=== PATIENT | male | born 1980 | race Caucasian/White ===

== ENCOUNTER → 2016-12-30 | Outpatient (CLI) | payer OTHER ==
[~2016-12-30] MED LIST: AMLO10TA PO; ASPI-587 PO; Atorvastatin Calcium PO; HYDR25TA4 PO; METO-272 PO; SERT25TA5 PO; VALS160T2 PO
--- OUTSIDE RECORDS SUMMARY | 2016-12-30 14:23 | XMS REPORT ---
Author Author JENA SMITH Organization [employer] Address Unknown Phone Unavailable Care Team Providers Care Insulator Technician Name Role Phone JENA SMITH CP Unavailable Allergies No Known Allergies Problems Problem Type Condition Code Onset Dates Condition Status Problem Pure hypercholesterolemia E78.0 Active Problem Anxiety F41.9 Active Problem Essential hypertension with goal blood pressure less than 130\/80 I10 Active Problem Obesity (BMI 30-39.9) E66.9 Active Problem Fatigue, unspecified type R53.83 Active Problem Hyperlipidemia E78.5 Active Problem Syncope and collapse R55 Active Problem Sexual dysfunction R37 Active Problem Lack of motivation Z91.89 Active Problem Syncope, unspecified syncope type R55 Active Assessment Pure hypercholesterolemia E78.0 Active Assessment Hyperlipidemia E78.5 Active Problem Lumbago 724.2 Active Problem Solitary pulmonary nodule 793.11 Active Medications Medication Code System Code Instructions Start Date End Date Status Dosage Atorvastatin Calcium [facility] [id number] 20 mg Orally Once a day TAKE ONE TABLET DAILY AT BEDTIME. AVOID GRAPEFRUIT JUICE Results No Known Results Summary Purpose [employer] Submission
--- NOTE | 2016-12-30 17:32 | Diagnostic Imaging Report ---
INDICATION: Painful right testicle. FINDINGS: Right testicle measures 3.7 x 2.2 x 3.6 cm. The left testicle measures 3.6 x 2 x 3.4 cm. The testicles are homogeneous with no masses. There is normal color flow to both testicles. There are rather large varicoceles present bilaterally. This does correlate with the lump that the patient feels. The epididymides appear normal. There is small hydrocele noted on the right. IMPRESSION: 1. Normal-appearing testicles 2. Large bilateral varicoceles. 3. Small hydrocele on the right. Dictated by: Dictated on workstation # [id number]
== END ==
LOC: RAD 14:19
PROVIDERS: ATTEND Nurse Practitioner Family
DX: I86.1 Scrotal varices (principal); N43.3 Hydrocele, unspecified
CPT/HCPCS: 76870

== ENCOUNTER 2018-06-13 19:06 | Emergency (ER) | payer SELFPAY ==
[~2018-06-13] VITALS: Ht 180.3 cm; Wt 117.9 kg
--- OUTSIDE RECORDS SUMMARY | 2018-06-13 19:12 | XMS REPORT ---
Author Author LUIS JENA [facility] Address [address] [place] [address] Care Team Providers Care Early Learning Teacher Name Role Phone JENA SMITH Unavailable PROBLEMS Type Condition ICD9-CM Code BPI77-SS Code Onset Dates Condition Status SNOMED Code Problem Anxiety F41.9 Active 34733627 Problem Syncope, unspecified syncope type R55 Active 905483774 Problem Syncope and collapse R55 Active 964115410 Problem Resistant hypertension I10 Active 99448685 Problem Abdominal cramping R10.9 Active 664657494 Problem Lack of motivation Z91.89 Active 68135616 Problem Fatigue, unspecified type R53.83 Active 89457188 Problem Hyperlipidemia E78.5 Active 58996132 Problem Obesity (BMI 30-39.9) E66.9 Active 946336111 Problem Lumbago 724.2 Active 968413766 Problem Essential hypertension with goal blood pressure less than 130\/80 I10 Active 66144881 Problem Pure hypercholesterolemia E78.0 Active 624492220 Problem Solitary pulmonary nodule 793.11 Active 432287203 Problem Sexual dysfunction R37 Active 67748821 ALLERGIES No Information ENCOUNTERS Encounter Location Date Diagnosis [facility] [address] [id number][place] [id number] May, [facility] [address] [id number], [place] [id number] Jan, [facility] [address] [id number], [place] [id number] Jan, Essential hypertension with goal blood pressure less than 130\/80 I10 [facility] [address] [id number] [place] [id number] Dec, [facility] [address] [id number][place] [id number] Dec, Essential hypertension with goal blood pressure less than 130\/[address] [facility] [address] [id number] [place] [id number] Dec, [facility] [address] [id number] [place] [id number] Nov, Resistant hypertension I10 and Anxiety F41.[address] [facility] [address] [id number] [place] [address] Nov, [facility] [address] [id number] [place] [address] Oct, [facility] [address] [id number] [place] [address] Oct, Essential hypertension with goal blood pressure less than 130\/80 I[address] [facility] [address] [id number] [place] [address] Oct, Essential hypertension with goal blood pressure less than 130\/80 I10 ; Obesity (BMI 30-39.9) E66.9 ; Abdominal cramping R10.9 and Anxiety F41.[address] [facility] [address] [id number] [place] [id number] Jun, Essential hypertension with goal blood pressure less than 130\/80 I[address] [facility] [address] [id number] [place] [address] May, Essential hypertension with goal blood pressure less than 130\/80 I[address] [facility] [address] [id number] [place] [address] May, [facility] [address] [id number] [place] [id number] May, Essential hypertension with goal blood pressure less than 130\/80 I10 ; Pure hypercholesterolemia E78.0 and Acute allergic rhinitis, unspecified seasonality, unspecified trigger J30.[address] [facility] [address] [id number] [place] [id number] February, [facility] [address] [id number] [place] [address] February, Essential hypertension with goal blood pressure less than 130\/80 I[address] [facility] [address] [id number] [place] [id number] Dec, [facility] [address] [id number], [place] [id number] Nov, Pain in right testicle N50.811 and Essential hypertension with goal blood pressure less than 130\/80 I[address] [facility] [address] [id number] [place] [address] Jul, [facility] [address] [id number] [place] [id number] Jul, Essential hypertension with goal blood pressure less than 130\/80 I10 ; Fatigue, unspecified type R53.83 ; Obesity (BMI 30-39.9) E66.9 and Lack of motivation Z91.89 [facility] [address] [id number], [place] [address] Jul, [facility] [address] [id number], [place] [id number] Jul, Hyperlipidemia E78.5 and Pure hypercholesterolemia E78.0 [facility] [address] [id number], [place] [address] Jun, Hyperglycemia R73.9 ; Hyperlipidemia E78.5 and Pure hypercholesterolemia E78.0 [facility] [address] [id number] [place] [id number] Jun, [facility] [address] [id number] [place] [id number] Apr, Syncope, unspecified syncope type R55 ; Chest pain, unspecified type R07.9 and Essential hypertension I10 [facility] [address] [id number] [place] [id number] Mar, Essential hypertension with goal blood pressure less than 130\/80 I10 and Pure hypercholesterolemia E78.[address] [facility] [address] [id number], [place] [id number] February, Essential hypertension with goal blood pressure less than 130\/80 I10 ; Syncope and collapse R55 and Anxiety F41.9 [facility] [address] [id number][place] [address] February, [facility] [address] [id number], [place] [id number] Jan, Essential hypertension with goal blood pressure less than 130\/80 I10 ; Sexual dysfunction R37 and Anxiety F41.9 [facility] [address] [address] Dec, Hyperglycemia R73.9 and Hyperlipidemia E78.5 [facility] [address] [id number], [place] [id number] Dec, Essential hypertension with goal blood pressure less than 130\/80 I10 and Pure hypercholesterolemia E78.0 [facility] [address] [id number], [place] [id number] Dec, Essential hypertension with goal blood pressure less than 130\/80 I10 and Pure hypercholesterolemia E78.0 [facility] [address] [place] [address] February, Generalized anxiety disorder 300.02 ; Unspecified episodic mood disorder 296.90 ; No condition on [place] II V71.09 ; Hypertension 401.9 and Bulging discs 722.2 [facility] [address] [id number], [place] [id number] Jan, [facility] [address] [id number], [place] [id number] Jan, [facility] [address] [address] Jan, [facility] [address] [address] Jan, [facility] [id number] [place] [address] Dec, [facility] [place] [facility] [address] [id number] [place] [address] 24 Dec, 2014 [facility] [place] [facility] [address] [id number] [place] [address] Dec, [facility] [place] [facility] [address] [id number] [place] [address] Dec, [facility] [place] [facility] [address] [id number] [place] [address] Dec, [facility] [place] [facility] [address] [id number] [place] [address] Dec, [facility] [place] [facility] [address] [id number] [place] [address] Nov, [facility] [place] [facility] [address] [id number] [place] [address] Nov, [facility] [place] [facility] [address] [id number] [place] [address] Nov, [facility] [place] [facility] [address] [id number] [place] [address] Nov, [facility] [place] [facility] [address] [facility] [id number] [place] [address] Oct, [facility] [place] [facility] [address] [id number] [place] [address] Oct, [facility] [place] [facility] [address] [id number] [place] [address] Oct, [facility] [place] [facility] [address] [id number] [place] [address] Oct, [facility] [place] [facility] [address] [id number] [place] [address] Oct, [facility] [place] [facility] [address] [id number] [place] [address] Oct, [facility] [address] [facility] [id number] [place] [address] Oct, [facility] [address] [facility] [id number] [address] Jul, [facility] [address] [facility] [id number] [place] [address] May, IMMUNIZATIONS No Known Immunizations SOCIAL HISTORY Never Assessed REASON FOR VISIT Refill request PLAN OF CARE VITAL SIGNS MEDICATIONS Unknown Medications RESULTS No Results PROCEDURES No Known procedures INSTRUCTIONS MEDICATIONS ADMINISTERED No Known Medications MEDICAL (GENERAL) HISTORY Type Description Date Medical History Hypertension Medical History Hyperlipidemia Medical History chronic low back pain Medical History obesity Medical History bilateral varicocele's and right hydrocele Medical History CVD risk 6.5% 10 yr, no statin indicated at this time Hospitalization History High BP 2014 Hospitalization History Via [facility]. Evaluated and sent home. 02/2016
--- OUTSIDE RECORDS SUMMARY | 2018-06-13 19:12 | XMS REPORT ---
Author Author LUIS JENA [facility] Address [address] [place] [address] Care Team Providers Care Solar Energy Installation Manager Name Role Phone JENA SMITH Unavailable PROBLEMS Type Condition ICD9-CM Code DIT43-XH Code Onset Dates Condition Status SNOMED Code Problem Anxiety F41.9 Active 36519170 Problem Syncope, unspecified syncope type R55 Active 723710966 Problem Syncope and collapse R55 Active 109531309 Problem Resistant hypertension I10 Active 37599084 Problem Abdominal cramping R10.9 Active 215358972 Problem Lack of motivation Z91.89 Active 54656016 Problem Fatigue, unspecified type R53.83 Active 06677456 Problem Hyperlipidemia E78.5 Active 97798215 Problem Obesity (BMI 30-39.9) E66.9 Active 616992546 Problem Lumbago 724.2 Active 433913300 Problem Essential hypertension with goal blood pressure less than 130\/80 I10 Active 47746252 Problem Pure hypercholesterolemia E78.0 Active 174608909 Problem Solitary pulmonary nodule 793.11 Active 801515185 Problem Sexual dysfunction R37 Active 23333853 ALLERGIES No Information ENCOUNTERS Encounter Location Date [facility] [address] [id number] [id number] May, [facility] [address] [id number], [place] [address] Jan, [facility] [address] [id number], [place] [address] Jan, Essential hypertension with goal blood pressure less than 130\/80 I10 [facility] [address] [id number] [place] [id number] Dec, [facility] [address] [id number], [place] [address] Dec, Essential hypertension with goal blood pressure less than 130\/80 I[address] [facility] [address] [id number] [place] [address] Dec, [facility] [address] [id number] [place] [id number] Nov, Resistant hypertension I10 and Anxiety F41.[address] [facility] [address] [id number] [place] [address] Nov, [facility] [address] [id number] [place] [id number] Oct, [facility] [address] [id number] [place] 464[address] Oct, Essential hypertension with goal blood pressure less than 130\/80 I[address] [facility] [address] [id number] [place] [address] Oct, Essential hypertension with goal blood pressure less than 130\/80 I10 ; Obesity (BMI 30-39.9) E66.9 ; Abdominal cramping R10.9 and Anxiety F41.[address] [facility] [address] [id number] [place] [id number] Jun, Essential hypertension with goal blood pressure less than 130\/80 I[address] [facility] [address] [id number] [place] [address] May, Essential hypertension with goal blood pressure less than 130\/80 I[address] [facility] [address] [id number] [place] [id number] May, [facility] [address] [id number] [place] [id number] May, Essential hypertension with goal blood pressure less than 130\/80 I10 ; Pure hypercholesterolemia E78.0 and Acute allergic rhinitis, unspecified seasonality, unspecified trigger J30.[address] [facility] [address] [id number] [place] [id number] February, [facility] [address] [id number] [place] [address]39[address] February, Essential hypertension with goal blood pressure less than 130\/80 I[address] [facility] [address] [id number] [place] [address] Dec, [facility] [address] [id number], [place] [address] Nov, Pain in right testicle N50.811 and Essential hypertension with goal blood pressure less than 130\/80 I[address] [facility] [address] [id number] [place] [address] Jul, [facility] [address] [id number] [place] [address] Jul, Essential hypertension with goal blood pressure less than 130\/80 I10 ; Fatigue, unspecified type R53.83 ; Obesity (BMI 30-39.9) E66.9 and Lack of motivation Z91.89 [facility] [address] [id number], [place] [address] Jul, [facility] [address] [id number], [place] [address] Jul, Hyperlipidemia E78.5 and Pure hypercholesterolemia E78.0 [facility] [address] [id number], [place] [address] Jun, Hyperglycemia R73.9 ; Hyperlipidemia E78.5 and Pure hypercholesterolemia E78.0 [facility] [address] [id number] [place] [id number] Jun, [facility] [address] [id number] [place] [id number] Apr, Syncope, unspecified syncope type R55 ; Chest pain, unspecified type R07.9 and Essential hypertension I10 [facility] [address] [id number] [place] [id number] Mar, Essential hypertension with goal blood pressure less than 130\/80 I10 and Pure hypercholesterolemia E78.[address] [facility] [address] [id number], [place] [id number] February, Essential hypertension with goal blood pressure less than 130\/80 I10 ; Syncope and collapse R55 and Anxiety F41.9 [facility] [address] [id number], [place] [id number] February, [facility] [address] [id number], [place] [id number] Jan, Essential hypertension with goal blood pressure less than 130\/80 I10 ; Sexual dysfunction R37 and Anxiety F41.9 [facility] [address], [place] [address] Dec, Hyperglycemia R73.9 and Hyperlipidemia E78.5 [facility] [address] [id number], [place] [id number] Dec, Essential hypertension with goal blood pressure less than 130\/80 I10 and [facility]olemia E78.0 [facility] [address] [id number], [place] [address] Dec, Essential hypertension with goal blood pressure less than 130\/80 I10 and Pure hypercholesterolemia E78.0 [facility] [address] [place] [address] February, Generalized anxiety disorder 300.02 ; Unspecified episodic mood disorder 296.90 ; No condition on [place] II V71.09 ; Hypertension 401.9 and Bulging discs 722.2 [facility] [address] [id number], [place] [id number] Jan, [facility] [address] [id number], [place] [id number] Jan, [facility] [address], [place] [address] Jan, [facility] [address], [place] [address] Jan, [facility] [id number] [place] [address]- [address] Dec, [facility] [place] [facility] [address] [id number] [place] [address]- [address] 24 Dec, 2014 [facility] [place] [facility] [address] [id number] [place] [address]- [address] Dec, [facility] [place] [facility] [address] [id number] [place] [address]- 8170 Dec, [facility] [place] [facility] [address] [id number] [place] [address]- 6555 Dec, [facility] [place] [facility] [address] [id number] [place] [address]- 1134 Dec, [facility] [place] [facility] [address] [id number] [place] [address]- 98[address] Nov, [facility] [place] [facility] [address] [id number] [place] [address]- 7892 Nov, [facility] [place] [facility] [address] [id number] [place] [address]- [address]287 Nov, [facility] [place] [facility] [address] [id number] [place] [address]- [address]306 Nov, [facility] [place] [facility] [address] [facility] [id number] [place] [address]- [address] Oct, [facility] [place] [facility] [address] [id number] [place] [address]- 6484 Oct, [facility] [place] [facility] [address] [id number] [place] [address]- 4382 Oct, [facility] [place] [facility] [address] [id number] [place] [address]- 1616 Oct, [facility] [place] [facility] [address] [id number] [place] [address]- 1250 Oct, [facility] [place] [facility] [address] [id number] [place] [address]- 8488 Oct, [facility] [address] [facility] [id number] [place] [address]- [address] Oct, [facility] [address] [facility] [id number], [place] [address]- [address] Jul, [facility] [address] [facility] [id number] [place] [address]- [address] May, IMMUNIZATIONS No Known Immunizations SOCIAL HISTORY Never Assessed REASON FOR VISIT Blood pressure check PLAN OF CARE VITAL SIGNS MEDICATIONS Medication Instructions Dosage Frequency Start Date End Date Duration Status Benazepril HCl 40 mg Orally Once a day 1 tablet 24h Dec, 30 day (s) Active RESULTS No Results PROCEDURES No Known procedures INSTRUCTIONS MEDICATIONS ADMINISTERED No Known Medications MEDICAL (GENERAL) HISTORY Type Description Date Medical History Hypertension Medical History Hyperlipidemia Medical History chronic low back pain Medical History obesity Medical History bilateral varicocele's and right hydrocele Medical History CVD risk 6.5% 10 yr, no statin indicated at this time Hospitalization History High BP 2014 Hospitalization History [facility]. Evaluated and sent home. 02/2016
--- OUTSIDE RECORDS SUMMARY | 2018-06-13 19:12 | XMS REPORT ---
Author Author [facility]ED CAMP [facility] Address Unknown Phone Unavailable Care Team Providers Care Refrigerating Engineer Head Name Role Phone ALFRED CAMP Unavailable Unavailable PROBLEMS Type Condition ICD9-CM Code EPF54-WC Code Onset Dates Condition Status SNOMED Code Problem Anxiety F41.9 Active 67802846 Problem Syncope, unspecified syncope type R55 Active 728183771 Problem Syncope and collapse R55 Active 701405972 Problem Resistant hypertension I10 Active 54906338 Problem Abdominal cramping R10.9 Active 183238508 Problem Lack of motivation Z91.89 Active 19890411 Problem Fatigue, unspecified type R53.83 Active 80066366 Problem Hyperlipidemia E78.5 Active 54764167 Problem Obesity (BMI 30-39.9) E66.9 Active 956130021 Problem Lumbago 724.2 Active 590684386 Problem Essential hypertension with goal blood pressure less than 130\/80 I10 Active 91589608 Problem Pure hypercholesterolemia E78.0 Active 173586527 Problem Solitary pulmonary nodule 793.11 Active 622665664 Problem Sexual dysfunction R37 Active 49734468 ALLERGIES No Information ENCOUNTERS Encounter Location Date Diagnosis [facility] [address] [id number] [id number] May, [facility] [address] [id number], [place] [id number] Jan, [facility] [address] [id number] [place] [id number] Jan, Essential hypertension with goal blood pressure less than 130\/80 I10 [facility] [address] [id number] [place] [id number] Dec, [facility] [address] [id number], [place] [id number] Dec, Essential hypertension with goal blood pressure less than 130\/80 I[address] [email or web address] [address] [id number] [place] [id number] Dec, [facility] [address] [id number] [place] [address] Nov, Resistant hypertension I10 and Anxiety F41.[address] [facility] [address] [id number] [place] [id number] Nov, [facility] [address] [id number] [place] [id number] Oct, [facility] [address] [id number] [place] [address] Oct, Essential hypertension with goal blood pressure less than 130\/[address] [facility] [address] [id number] [place] [id number] Oct, Essential hypertension with goal blood pressure less than 130\/80 I10 ; Obesity (BMI 30-39.9) E66.9 ; Abdominal cramping R10.9 and Anxiety F41.[address] [address] [id number][place] [address] Jun, Essential hypertension with goal blood pressure less than 130\/[address] [facility] [address] [id number][place] [id number] May, Essential hypertension with goal blood pressure less than 130\/80 I[address] [facility] [address] [id number] [place] [address] May, [facility] [address] [id number] [place] [address] May, Essential hypertension with goal blood pressure less than 130\/80 I10 ; Pure hypercholesterolemia E78.0 and Acute allergic rhinitis, unspecified seasonality, unspecified trigger J30.[address] [facility] [address] [id number] [place] [id number] February, [facility] [address] [id number], [place] [address]35 February, Essential hypertension with goal blood pressure less than 130\/80 I10 [facility] [address] [id number] [place] [id number] Dec, [facility] [address] [id number], [place] [address] Nov, Pain in right testicle N50.811 and Essential hypertension with goal blood pressure less than 130\/80 I10 [facility] [address] [id number], [place] [address] Jul, [facility] [address] [id number], [place] 2010[address]335 Jul, Essential hypertension with goal blood pressure less than 130\/80 I10 ; Fatigue, unspecified type R53.83 ; Obesity (BMI 30-39.9) E66.9 and Lack of motivation Z91.89 [facility] [address] [id number], [place] [address] Jul, [facility] [address] [id number], [place] [id number] Jul, Hyperlipidemia E78.5 and Pure hypercholesterolemia E78.0 [facility] [address] [id number], [place] [id number] Jun, Hyperglycemia R73.9 ; Hyperlipidemia E78.5 and Pure hypercholesterolemia E78.0 [facility] [address] [id number], [place] [id number] Jun, [facility] [address] [id number] [place] [id number] Apr, Syncope, unspecified syncope type R55 ; Chest pain, unspecified type R07.9 and Essential hypertension I10 [facility] [address] [id number], [place] [id number] Mar, Essential hypertension with goal blood pressure less than 130\/80 I10 and Pure hypercholesterolemia E78.0 [facility] [address] [id number], [place] [address] February, Essential hypertension with goal blood pressure less than 130\/80 I10 ; Syncope and collapse R55 and Anxiety F41.9 [facility] [address] [id number], [place] [id number] February, [facility] [address] [id number], [place] [address] Jan, Essential hypertension with goal blood pressure less than 130\/80 I10 ; Sexual dysfunction R37 and Anxiety F41.9 [facility] [address], [place] [address] Dec, Hyperglycemia R73.9 and Hyperlipidemia E78.5 [facility] [address] [id number], [place] [id number] Dec, Essential hypertension with goal blood pressure less than 130\/80 I10 and Pure hypercholesterolemia E78.0 [facility] [address] [id number], [place] [address] Dec, Essential hypertension with goal blood pressure less than 130\/80 I10 and Pure hypercholesterolemia E78.0 [facility] [address], [place] [address] February, Generalized anxiety disorder 300.02 ; Unspecified episodic mood disorder 296.90 ; No condition on [place] II V71.09 ; Hypertension 401.9 and Bulging discs 722.2 [facility] [address] [id number], [place] [id number] Jan, [facility] [address] [id number], [place] [id number] Jan, [facility] [address], [place] [address] Jan, [facility] [address]65[address], [place] [address] Jan, [facility] [address] [id number], [place] [address] Dec, [facility] [address] [id number] [place] [address] Dec, [facility] [place] [facility] [address] [id number] [place] [address] Dec, [facility] [place] [facility] [address] [id number] [place] [address] Dec, [facility] [place] [facility] [address] [id number] [place] [address] Dec, [facility] [place] [facility] [address] [id number] [place] [address] Dec, [facility] [place] [facility] [address] [id number] [place] [address] Nov, [facility] [place] [facility] [address] [id number] [place] [address] Nov, [facility] [place] [facility] [address] [id number] [place] [address] Nov, [facility] [place] [facility] [address] [id number] [place] [address] Nov, [facility] [place] [facility] [address] [id number] [place] [address] Oct, [facility] [place] [facility] [address] [id number] [place] [address] Oct, [facility] [place] [facility] [address] [id number] [place] [address] Oct, [facility] [place] [facility] [address] [id number] [place] [address] Oct, [facility] [place] [facility] [address] [id number] [place] [address] Oct, [facility] [place] [facility] [address] [id number] [place] [address] Oct, [facility] [place] [facility] [address] [id number] [place] [address] Oct, [facility] [address] [facility] [id number] [place] [address] Jul, [facility] [address] [facility] [id number] [place] [address] May, IMMUNIZATIONS No Known Immunizations SOCIAL HISTORY Never Assessed REASON FOR VISIT [facility] [place] Contact PLAN OF CARE Activity Details Follow Up as needed. Reason:past hx. of mood disturbance. VITAL SIGNS MEDICATIONS Unknown Medications RESULTS No [...] History High BP 2014 Hospitalization History Via [facility] ER. Evaluated and sent home. 02/2016
--- OUTSIDE RECORDS SUMMARY | 2018-06-13 19:12 | XMS REPORT ---
Author Author LUIS JENA [facility] Address [address] [place] [address] Care Team Providers Care Electrologist Name Role Phone JENA SMITH Unavailable PROBLEMS Type Condition ICD9-CM Code QMR23-WQ Code Onset Dates Condition Status SNOMED Code Problem Anxiety F41.9 Active 66648532 Problem Syncope, unspecified syncope type R55 Active 283740372 Problem Syncope and collapse R55 Active 623432977 Problem Resistant hypertension I10 Active 79540512 Problem Abdominal cramping R10.9 Active 869365144 Problem Lack of motivation Z91.89 Active 89952706 Problem Fatigue, unspecified type R53.83 Active 50783743 Problem Hyperlipidemia E78.5 Active 92879061 Problem Obesity (BMI 30-39.9) E66.9 Active 196895490 Problem Lumbago 724.2 Active 557150064 Problem Essential hypertension with goal blood pressure less than 130\/80 I10 Active 91284118 Problem Pure hypercholesterolemia E78.0 Active 343456887 Problem Solitary pulmonary nodule 793.11 Active 280450313 Problem Sexual dysfunction R37 Active 24493574 ALLERGIES No Information ENCOUNTERS Encounter Location Date Diagnosis [facility] [address] [id number] [id number] May, [facility] [address] [id number], [place] [address] Jan, [facility] [address] [id number], [place] [address]86190752 Jan, Essential hypertension with goal blood pressure less than 130\/80 I10 [facility] [address] [id number] [place] [address] Dec, [facility] [address] [id number], [place] [address]23 Dec, Essential hypertension with goal blood pressure less than 130\/80 I[address] [facility] [address] [id number] [place] [address] Dec, [facility] [address] [id number] [place] [address] Nov, Resistant hypertension I10 and Anxiety F41.[address] [facility] [address] [id number] [place] [address] Nov, [facility] [address] [id number] [place] [address] Oct, [facility] [address] [id number] [place] 1985[address]46 Oct, Essential hypertension with goal blood pressure less than 130\/80 [address] [facility] [address] [id number] [place] [address] Oct, Essential hypertension with goal blood pressure less than 130\/80 I10 ; Obesity (BMI 30-39.9) E66.9 ; Abdominal cramping R10.9 and Anxiety F41.[address] [facility] [address] [id number] [place] [address] Jun, Essential hypertension with goal blood pressure less than 130\/80 [address] [facility] [address] [id number] [place] [address] May, Essential hypertension with goal blood pressure less than 130\/80 I[address] [facility] [address] [id number] [place] [address] May, [facility] [address] [id number] [place] [address] May, Essential hypertension with goal blood pressure less than 130\/80 I10 ; Pure hypercholesterolemia E78.0 and Acute allergic rhinitis, unspecified seasonality, unspecified trigger J30.[address] [facility] [address] [id number] [place] [address] February, [facility] [address] [id number] [place] [address] February, Essential hypertension with goal blood pressure less than 130\/80 I[address] [facility] [address] [id number] [place] [address]69364[address] Dec, [facility] [address] [id number], [place] [address] Nov, Pain in right testicle N50.811 and Essential hypertension with goal blood pressure less than 130\/80 I[address] [facility] [address] [id number] [place] [address] Jul, [facility] [address] [id number] [place] [address] Jul, Essential hypertension with goal blood pressure less than 130\/80 I10 ; Fatigue, unspecified type R53.83 ; Obesity (BMI 30-39.9) E66.9 and Lack of motivation Z91.89 [facility] [address] [id number], [place] 435007[address] Jul, [facility] [address] [id number], [place] 619548199 Jul, Hyperlipidemia E78.5 and Pure hypercholesterolemia E78.0 [facility] [address] [id number], [place] 801[address] Jun, Hyperglycemia R73.9 ; Hyperlipidemia E78.5 and Pure hypercholesterolemia E78.0 [facility] [address] [id number] [place] [address] Jun, [facility] [address] [id number] [place] [address] Apr, Syncope, unspecified syncope type R55 ; Chest pain, unspecified type R07.9 and Essential hypertension I10 [facility] [address] [id number] [place] [id number] Mar, Essential hypertension with goal blood pressure less than 130\/80 I10 and Pure hypercholesterolemia E78.[address] [facility] [address] [id number], [place] 4478229[address] February, Essential hypertension with goal blood pressure less than 130\/80 I10 ; Syncope and collapse R55 and Anxiety F41.9 [facility] [address] [id number], [place] 148515852 February, [facility] [address] [id number], [place] [address]9546[address] Jan, Essential hypertension with goal blood pressure less than 130\/80 I10 ; Sexual dysfunction R37 and Anxiety F41.9 [facility] [place] [address], [place] [address] Dec, Hyperglycemia R73.9 and Hyperlipidemia E78.5 [facility] [address] [id number], [place] 360665845 Dec, Essential hypertension with goal blood pressure less than 130\/80 I10 and Pure hypercholesterolemia E78.0 [facility] [address] [id number], [place] 182496555 Dec, Essential hypertension with goal blood pressure less than 130\/80 I10 and Pure hypercholesterolemia E78.0 [facility] [place] [address] [place] [address] February, Generalized anxiety disorder 300.02 ; Unspecified episodic mood disorder 296.90 ; No condition on [place] II V71.09 ; Hypertension 401.9 and Bulging discs 722.2 [facility] [address] [id number], [place] [id number] Jan, [facility] [address] [id number], [place] 342173870 Jan, [facility] [place] [address]65100[place], [place] [address] Jan, [facility] [place] [address]65100[place], [place] [address] Jan, [facility] [place] [id number] [place] [address] Dec, [facility] [place] [facility] [address] [id number] [place] [address]- [address] 24 Dec, 2014 [facility] [place] [facility] [address] [id number] [place] [address]- [address]17 Dec, [facility] [place] [facility] [address] [id number] [place] [address]- [address]21 Dec, [facility] [place] [facility] [address] [id number] [place] [address]- [address]99 Dec, [facility] [place] [facility] [address] [id number] [place] [address]- [address]267 Dec, [facility] [place] [facility] [address] [id number] [place] [address]- [address] Nov, [facility] [place] [facility] [address] [id number] [place] [address]- 7491 Nov, [facility] [place] [facility] [address] [id number] [place] [address]- [address] Nov, [facility] [place] [facility] [address] [id number] [place] [address]- [address]249 Nov, [facility] [place] [facility] [address] [facility] [id number] [place] [address]- 2706 Oct, [facility] [place] [facility] [address] [id number] [place] [address]- [address] Oct, [facility] [place] [facility] [address] [id number] [place] [address]- 9718 Oct, [facility] [place] [facility] [address] [id number] [place] [address]- 4994 Oct, [facility] [place] [facility] [address] [id number] [place] [address]- 6018 Oct, [facility] [place] [facility] [address] [id number] [place] [address]- 1190 Oct, [facility] [place] [address] [facility] [id number] [place] [address] Oct, [facility] [place] [address] [facility] [id number], [place] [address]- [address] Jul, [facility] [place] [address] [facility] [id number] [place] May, IMMUNIZATIONS No Known Immunizations SOCIAL HISTORY Never Assessed REASON FOR VISIT refill request PLAN OF CARE VITAL SIGNS MEDICATIONS [...] History High BP 2014 Hospitalization History Via [facility] ER. Evaluated and sent home. 02/2016
--- OUTSIDE RECORDS SUMMARY | 2018-06-13 19:12 | XMS REPORT ---
Author Author LUIS JENA [facility] Address [address] [place] [address] Care Team Providers Care Rig Manager Name Role Phone JENA SMITH Unavailable PROBLEMS Type Condition ICD9-CM Code [id number] Code Onset Dates Condition Status SNOMED Code Problem Anxiety F41.9 Active 93829860 Problem Syncope, unspecified syncope type R55 Active 909351532 Problem Syncope and collapse R55 Active 410354208 Problem Resistant hypertension I10 Active 12265776 Problem Abdominal cramping R10.9 Active 443709478 Problem Lack of motivation Z91.89 Active 53096359 Problem Fatigue, unspecified type R53.83 Active 84016096 Problem Hyperlipidemia E78.5 Active 22383752 Problem Obesity (BMI 30-39.9) E66.9 Active 768540738 Problem Lumbago 724.2 Active 266274447 Problem Essential hypertension with goal blood pressure less than 130\/80 I10 Active 55276558 Problem Pure hypercholesterolemia E78.0 Active 298659491 Problem Solitary pulmonary nodule 793.11 Active 217045840 Problem Sexual dysfunction R37 Active 16869417 ALLERGIES Substance Reaction Event Type Date Status Lisinopril hives Drug Allergy Jan, Active Amlodipine Besylate foot cramps Drug Allergy Jan, Active ENCOUNTERS Encounter Location Date [facility] [address] [address] [id number] [place] [id number] May, [facility] [address] [address] [id number] [place] [id number] Jan, [facility] [address] [id number] [address] Jan, Essential hypertension with goal blood pressure less than 130\/80 I10 [facility] [address] [id number], [place] [address]167[address] Dec, [facility] [address] [id number] [place] [address] Dec, Essential hypertension with goal blood pressure less than 130\/80 I[address] [facility] [address] [id number] [place] [address] Dec, [facility] [address] [id number] [place] [id number] Nov, Resistant hypertension I10 and Anxiety F41.9 [facility] [address] [id number] [place] [id number] Nov, [facility] [address] [id number] [place] [id number] Oct, [facility] [address] [id number], [place] [address]686055 Oct, Essential hypertension with goal blood pressure less than 130\/80 I[address] [facility] [address] [id number], [place] 933456613 Oct, Essential hypertension with goal blood pressure less than 130\/80 I10 ; Obesity (BMI 30-39.9) E66.9 ; Abdominal cramping R10.9 and Anxiety F41.9 [facility] [address] [id number] [place] [address] Jun, Essential hypertension with goal blood pressure less than 130\/80 I[address] [facility] [address] [id number] [place] [id number] May, Essential hypertension with goal blood pressure less than 130\/80 I[address] [facility] [address] [id number] [place] [id number] May, [facility] [address] [id number] [place] [address] May, Essential hypertension with goal blood pressure less than 130\/80 I10 ; Pure hypercholesterolemia E78.0 and Acute allergic rhinitis, unspecified seasonality, unspecified trigger J30.[address] [facility] [address] [id number] [place] [address] February, [facility] [address] [id number] [place] [address] February, Essential hypertension with goal blood pressure less than 130\/80 I[address] [facility] [address] [id number] [place] [address] Dec, [facility] [address] [id number][place] [id number] Nov, Pain in right testicle N50.811 and Essential hypertension with goal blood pressure less than 130\/80 I[address] [facility] [address] [id number], [place] [id number] Jul, [facility] [address] [id number], [place] 9533[address] Jul, Essential hypertension with goal blood pressure less than 130\/80 I10 ; Fatigue, unspecified type R53.83 ; Obesity (BMI 30-39.9) E66.9 and Lack of motivation Z91.89 [facility] [address] [id number], [place] [address] Jul, [facility] [address] [id number][place] [address] Jul, Hyperlipidemia E78.5 and Pure hypercholesterolemia E78.0 [facility] [address] [id number], [place] 36476[address]97 Jun, Hyperglycemia R73.9 ; Hyperlipidemia E78.5 and Pure hypercholesterolemia E78.0 [facility] [address] [id number] [place] [address] Jun, [facility] [address] [id number], [place] [id number] Apr, Syncope, unspecified syncope type R55 ; Chest pain, unspecified type R07.9 and Essential hypertension I10 [facility] [address] [id number], [place] 014865674 Mar, Essential hypertension with goal blood pressure less than 130\/80 I10 and Pure hypercholesterolemia E78.0 [facility] [address] [id number], [place] 569058730 February, Essential hypertension with goal blood pressure less than 130\/80 I10 ; Syncope and collapse R55 and Anxiety F41.9 [facility] [address] [id number], [place] [id number] February, [facility] [address] [id number], [place] [address] Jan, Essential hypertension with goal blood pressure less than 130\/80 I10 ; Sexual dysfunction R37 and Anxiety F41.9 [facility] [address] [address] Dec, Hyperglycemia R73.9 and Hyperlipidemia E78.5 [facility] [address] [id number], [place] [id number] Dec, Essential hypertension with goal blood pressure less than 130\/80 I10 and Pure hypercholesterolemia E78.0 [facility] [address] [facility] [address] [id number], [place] 1926[address] Dec, Essential hypertension with goal blood pressure less than 130\/80 I10 and Pure hypercholesterolemia E78.0 [facility] [address] [place] [address] February, Generalized anxiety disorder 300.02 ; Unspecified episodic mood disorder 296.90 ; No condition on [place] II V71.09 ; Hypertension 401.9 and Bulging discs 722.2 [facility] [address] [id number], [place] [id number] Jan, [facility] [address] [id number], [place] [address] Jan, [facility] [address] [address] Jan, [facility] [id number] [place] [address] 13 Jan, 2015 [facility] [place] [facility] [address] [id number] [place] [address] 24 Dec, 2014 [facility] [place] [facility] [address] [id number] [place] [address] 24 Dec, 2014 [facility] [place] [facility] [address] [id number] [place] [address] 18 Dec, 2014 [facility] [place] [facility] [address] [id number] [place] [address] 18 Dec, 2014 [facility] [place] [facility] [address] [id number] [place] [address] Dec, [facility] [place] [facility] [address] [id number] [place] [address] Dec, [facility] [place] [facility] [address] [facility] [id number] [place] [address] Nov, [facility] [place] [facility] [address] [id number] [place] [address] Nov, [facility] [place] [facility] [address] [id number] [place] [address] Nov, [facility] [place] [facility] [address] [facility] [id number] [place] [address] Nov, [facility] [place] [facility] [address] [facility] [id number] [place] [address] Oct, [facility] [place] [facility] [address] [id number] [place] [address] Oct, [facility] [place] [facility] [address] [id number] [place] [address] Oct, [facility] [place] [facility] [address] [facility] [id number] [place] [address] Oct, [facility] [place] [facility] [address] [facility] [id number], [place] [address] Oct, [facility] [address] [facility] [id number] [address] Oct, [facility] [address] [facility] [id number] [address] Oct, [facility] [address] [facility] [id number] [address] Jul, [facility] [address] [facility] [id number][place] [address] May, IMMUNIZATIONS No Known Immunizations SOCIAL HISTORY Never Assessed REASON FOR VISIT Blood Pressure-follow up on blood pressure due to change in med. Juana gruber PLAN OF CARE Activity Details Follow Up 4 Months Reason:b/p VITAL SIGNS Height 71 in 2018-02-01 Weight 275.0 lbs 2018-02-01 Temperature 98.1 degrees Fahrenheit 2018-02-01 Heart Rate 78 bpm 2018-02-01 Respiratory Rate 18 2018-02-01 BMI 38.35 kg/m2 2018-02-01 Blood pressure systolic 138 mmHg 2018-02-01 Blood pressure diastolic 70 mmHg 2018-02-01 MEDICATIONS Medication Instructions Dosage Frequency Start Date End Date Duration Status Metoprolol Succinate ER 50 mg Orally Once a day 1 tablet 24h 0 days Active Diovan 160 MG Orally Once a day at noon 1 tablet 0 days Active Hydrochlorothiazide 12.5 MG Orally Once a day 1 tablet in the morning 24h Active Aspir-81 81 MG Orally Once a day 1 tablet 24h Active Atorvastatin Calcium 20 mg Orally Once a day TAKE ONE TABLET DAILY AT BEDTIME. AVOID GRAPEFRUIT JUICE 24h Unknown Fish Oil 1000 MG Orally twice a day 1 capsule 12h Active Vitamin D 1000 UNIT Orally Once a day 1 tablet 24h Active Hydrochlorothiazide 12.5 MG TAKE ONE CAPSULE BY MOUTH ONCE DAILY IN THE MORNING 30 Active Metoprolol Succinate ER 50 mg Orally Once a day 1 tablet 24h 0 Active BusPIRone HCl 10 mg Orally Twice a day 1 tablet for anxiety 12h Oct, Active Benazepril HCl 40 mg Orally Once a day 1 tablet 24h 19 Dec, 2017 30 day (s) Active Lopid 600 MG Orally Twice a day 1 tablet 12h 0 Active RESULTS No Results PROCEDURES No Known procedures INSTRUCTIONS MEDICATIONS ADMINISTERED No Known Medications MEDICAL (GENERAL) HISTORY Type Description Date Medical History Hypertension Medical History Hyperlipidemia Medical History chronic low back pain Medical History obesity Medical History bilateral varicocele's and right hydrocele Medical History CVD risk 6.5% 10 yr, no statin indicated at this time Hospitalization History High BP 2014 Hospitalization History [facility] ER. Evaluated and sent home. 02/2016
[2018-06-13] MEDS ORDERED: LACTATED RINGERS 1,000 ML IV ONE (19:13)
--- OUTSIDE RECORDS SUMMARY | 2018-06-13 19:13 | XMS REPORT ---
Author Author LUIS JENA [facility] ExpressGigaMediaPORTILLO Address [address] [place] [address] Care Team Providers Care Livestock Rancher Name Role Phone JENA SMITH Unavailable PROBLEMS Type Condition ICD9-CM Code PEO82-UE Code Onset Dates Condition Status SNOMED Code Problem Anxiety F41.9 Active 52799429 Problem Syncope, unspecified syncope type R55 Active 507899448 Problem Syncope and collapse R55 Active 030928745 Problem Resistant hypertension I10 Active 75113126 Problem Abdominal cramping R10.9 Active 734601887 Problem Lack of motivation Z91.89 Active 30235745 Problem Fatigue, unspecified type R53.83 Active 04556513 Problem Hyperlipidemia E78.5 Active 46439698 Problem Obesity (BMI 30-39.9) E66.9 Active 499569319 Problem Lumbago 724.2 Active 269782534 Problem Essential hypertension with goal blood pressure less than 130\/80 I10 Active 42947882 Problem Pure hypercholesterolemia E78.0 Active 391759699 Problem Solitary pulmonary nodule 793.11 Active 016974964 Problem Sexual dysfunction R37 Active 50351161 ALLERGIES Substance Reaction Event Type Date Status Lisinopril hives Drug Allergy May, Active ENCOUNTERS Encounter Location Date Diagnosis [facility] [address] [id number][place] [id number] Jan, [employer] [address] [id number] [place] [address] Jan, Essential hypertension with goal blood pressure less than 130\/80 I10 [facility] [address] [id number] [place] [id number] Dec, [facility] [address] [id number], [place] [id number] Dec, Essential hypertension with goal blood pressure less than 130\/80 I[address] [facility] [address] [id number] [place] [id number] Dec, [facility] [address] [id number] [place] [id number] Nov, Resistant hypertension I10 and Anxiety F41.[address] [facility] [address] [id number] [place] [id number] Nov, [facility] [address] [id number] [place] [id number] Oct, [facility] [address] [id number] [place] [address] Oct, Essential hypertension with goal blood pressure less than 130\/80 I[address] [facility] [address] [id number] [place] [address] Oct, Essential hypertension with goal blood pressure less than 130\/80 I10 ; Obesity (BMI 30-39.9) E66.9 ; Abdominal cramping R10.9 and Anxiety F41.[address] [facility] [address] [id number] [place] [address] Jun, Essential hypertension with goal blood pressure less than 130\/80 I[address] [facility] [address] [id number] [place] [address] May, Essential hypertension with goal blood pressure less than 130\/80 I[address] [facility] [address] [id number] [place] [address] May, [facility] [address] [id number] [place] [id number] May, Essential hypertension with goal blood pressure less than 130\/80 I10 ; Pure hypercholesterolemia E78.0 and Acute allergic rhinitis, unspecified seasonality, unspecified trigger J30.[address] [facility] [address] [id number] [place] [address] February, [facility] [address] [id number], [place] [id number] February, Essential hypertension with goal blood pressure less than 130\/80 I10 [facility] [address] [id number] [place] [id number] Dec, [facility] [address] [id number], [place] 813861856 Nov, Pain in right testicle N50.811 and Essential hypertension with goal blood pressure less than 130\/80 I[address] [facility] [address] [id number] [place] [address] Jul, [facility] [address] [id number], [place] [address] Jul, Essential hypertension with goal blood pressure less than 130\/80 I10 ; Fatigue, unspecified type R53.83 ; Obesity (BMI 30-39.9) E66.9 and Lack of motivation Z91.89 [facility] [address] [id number], [place] [id number] Jul, [facility] [address] [id number], [place] [id number] Jul, Hyperlipidemia E78.5 and Pure hypercholesterolemia E78.0 [facility] [address] [id number], [place] [id number] Jun, Hyperglycemia R73.9 ; Hyperlipidemia E78.5 and Pure hypercholesterolemia E78.0 [facility] [address] [id number], [place] [id number] Jun, [facility] [address] [id number], [place] [id number] Apr, Syncope, unspecified syncope type R55 ; Chest pain, unspecified type R07.9 and Essential hypertension I10 [facility] [address] [id number], [place] [id number] Mar, Essential hypertension with goal blood pressure less than 130\/80 I10 and Pure hypercholesterolemia E78.0 [facility] [address] [id number], [place] [id number] February, Essential hypertension with goal blood pressure less than 130\/80 I10 ; Syncope and collapse R55 and Anxiety F41.9 [facility] [address] [id number], [place] [id number] February, [facility] [address] [id number], [place] [id number] Jan, Essential hypertension with goal blood pressure less than 130\/80 I10 ; Sexual dysfunction R37 and Anxiety F41.9 [facility] [address] [address] Dec, Hyperglycemia R73.9 and Hyperlipidemia E78.5 [facility] [place] [address] [id number], [place] [id number] Dec, Essential hypertension with goal blood pressure less than 130\/80 I10 and Pure hypercholesterolemia E78.0 [facility] [place] [address] [id number], [place] 479385070 Dec, Essential hypertension with goal blood pressure less than 130\/80 I10 and Pure hypercholesterolemia E78.0 [facility] [id number] [place] [address] February, Generalized anxiety disorder 300.02 ; Unspecified episodic mood disorder 296.90 ; No condition on [place] II V71.09 ; Hypertension 401.9 and Bulging discs 722.2 [facility] [address] [id number], [place] [id number] Jan, [facility] [address] [id number], [place] [id number] Jan, [facility] [id number] [place] [address] Jan, [facility] [id number] [place] [address] Jan, [facility] [id number] [place] [address]- [address] Dec, [facility] [place] [facility] [address] [id number] [place] [address]- [address] Dec, [facility] [place] [facility] [address] [id number] [place] [address]- 0872 Dec, [facility] [place] [facility] [address] [id number] [place] [address]- 9477 Dec, [facility] [place] [facility] [address] [id number] [place] [address]- 2603 Dec, [facility] [place] [facility] [address] [id number] [place] [address]- 6347 Dec, [facility] [place] [facility] [address] [id number] [place] [address]- 6876 Nov, [facility] [place] [facility] [address] [id number] [place] [address]- 78[address] Nov, [facility] [place] [facility] [address] [id number] [place] [address]- 7731 Nov, [facility] [place] [facility] [address] [id number] [place] [address]- 60[address] Nov, [facility] [place] [facility] [address] [id number] [place] [address]- [address] Oct, [facility] [place] [facility] [address] [id number] [place] [address]- 0336 Oct, [facility] [place] [facility] [address] [id number], [place] [address]- [address] Oct, [facility] [place] [facility] [address] [id number] [place] [address]- 1148 Oct, [facility] [place] [facility] [address] [id number] [place] [address]- 2448 Oct, [facility] [place] [facility] [address] [id number] [place] [address]- 9517 Oct, [facility] [place] [facility] [address] [facility] [id number] [place] [address]- [address] Oct, [facility] [address] [facility] [id number] [place] [address]- 2460 Jul, [facility] [address] [facility] [id number] [place] [address]- [address] May, IMMUNIZATIONS No Known Immunizations SOCIAL HISTORY Never Assessed REASON FOR VISIT Blood Pressure follow up pt thinks he also has sinus infection, pt is fasting elva flores PLAN OF CARE Activity Details Follow Up 4 Months Reason:b/p VITAL SIGNS Height 71 in 2017-06-06 Weight 276.6 lbs 2017-06-06 Temperature 97.6 degrees Fahrenheit 2017-06-06 Heart Rate 62 bpm 2017-06-06 Respiratory Rate 18 2017-06-06 BMI 38.57 kg/m2 2017-06-06 Blood pressure systolic 152 mmHg 2017-06-06 Blood pressure diastolic 90 mmHg 2017-06-06 MEDICATIONS Medication Instructions Dosage Frequency Start Date End Date Duration Status Aspir-81 81 MG Orally Once a day 1 tablet 24h Active Fish Oil 1000 MG Orally twice a day 1 capsule 12h Active Metoprolol Succinate ER 50 mg Orally Once a day 1 tablet 24h 0 days Active Amlodipine Besylate 10 mg Orally daily 1 tablet Once a day Orally 24h 0 days Active Lopid 600 MG Orally Twice a day 1 tablet 12h Dec, 0 days Active Diovan 160 MG Orally Once a day at noon 1 tablet 0 days Active Hydrochlorothiazide 12.5 MG Orally Once a day 1 tablet in the morning 24h February, Active Atorvastatin Calcium 20 mg Orally Once a day TAKE ONE TABLET DAILY AT BEDTIME. AVOID GRAPEFRUIT JUICE 24h Active RESULTS No Results PROCEDURES Procedure Date Ordered Result Body Site ASSAY THYROID STIM HORMONE Jun 06, 2017 ASSAY OF FREE THYROXINE Jun 06, 2017 LIPID PANEL Jun 06, 2017 COMPREHEN METABOLIC PANEL Jun 06, 2017 VENIPUNCT, ROUTINE* Jun 06, 2017 INSTRUCTIONS MEDICATIONS ADMINISTERED No Known Medications MEDICAL [...]
--- OUTSIDE RECORDS SUMMARY | 2018-06-13 19:13 | XMS REPORT ---
Author Author LUIS JENA [facility] Address [address] [place] [address] Care Team Providers Care [employer] Leader Name Role Phone JENA SMITH Unavailable PROBLEMS Type Condition ICD9-CM Code [id number] Code Onset Dates Condition Status SNOMED Code Problem Anxiety F41.9 Active 24418772 Problem Syncope, unspecified syncope type R55 Active 564083042 Problem Syncope and collapse R55 Active 105420969 Problem Resistant hypertension I10 Active 83836323 Problem Abdominal cramping R10.9 Active 852602348 Problem Lack of motivation Z91.89 Active 17030241 Problem Fatigue, unspecified type R53.83 Active 65896074 Problem Hyperlipidemia E78.5 Active 65827678 Problem Obesity (BMI 30-39.9) E66.9 Active 662563989 Problem Lumbago 724.2 Active 915123369 Problem Essential hypertension with goal blood pressure less than 130\/80 I10 Active 53698694 Problem Pure hypercholesterolemia E78.0 Active 335965906 Problem Solitary pulmonary nodule 793.11 Active 200274483 Problem Sexual dysfunction R37 Active 85426422 ALLERGIES Substance Reaction Event Type Date Status Lisinopril hives Drug Allergy Nov, Active Amlodipine Besylate foot cramps Drug Allergy Nov, Active ENCOUNTERS Encounter Location Date Diagnosis [facility] [address] [id number] [place] [id number] May, [facility] [address] [id number] [place] [id number] Jan, [facility] [address] [id number][place] [id number] Jan, Essential hypertension with goal blood pressure less than 130\/80 I10 [facility] [address] [id number][place] [address] Dec, [facility] [address] [id number] [place] [id number] Dec, Essential hypertension with goal blood pressure less than 130\/80 I[address] [facility] [address] [id number] [place] [id number] Dec, [facility] [address] [id number] [place] [id number] Nov, Resistant hypertension I10 and Anxiety F41.9 [facility] [address] [address] [id number] [place] [id number] Nov, [facility] [address] [id number] [place] [id number] Oct, [facility] [address] [id number] [place] [address] Oct, Essential hypertension with goal blood pressure less than 130\/80 I[address] [facility] [address] [id number] [place] [id number] Oct, Essential hypertension with goal blood pressure less than 130\/80 I10 ; Obesity (BMI 30-39.9) E66.9 ; Abdominal cramping R10.9 and Anxiety F41.9 [facility] [address] [id number] [place] [id number] Jun, Essential hypertension with goal blood pressure less than 130\/80 [address] [facility] [address] [id number] [place] [id number] May, Essential hypertension with goal blood pressure less than 130\/80 I[address] [facility] [address] [id number] [place] [id number] May, [facility] [address] [id number] [place] [address] May, Essential hypertension with goal blood pressure less than 130\/80 I10 ; Pure hypercholesterolemia E78.0 and Acute allergic rhinitis, unspecified seasonality, unspecified trigger J30.[address] [facility] [address] [id number] [place] [id number] February, [facility] [address] [id number] [place] [address] February, Essential hypertension with goal blood pressure less than 130\/80 I[address] [facility] [address] [id number] [place] [address] Dec, [facility] [address] [id number], [place] [id number] Nov, Pain in right testicle N50.811 and Essential hypertension with goal blood pressure less than 130\/80 I[address] [facility] [address] [id number] [place] [id number] Jul, [facility] [address] [id number], [place] [address] Jul, Essential hypertension with goal blood pressure less than 130\/80 I10 ; Fatigue, unspecified type R53.83 ; Obesity (BMI 30-39.9) E66.9 and Lack of motivation Z91.89 [facility] [address] [id number], [place] [id number] Jul, [facility] [address] [id number], [place] [id number] Jul, Hyperlipidemia E78.5 and Pure hypercholesterolemia E78.0 [facility] [address] [id number], [place] [address] Jun, Hyperglycemia R73.9 ; Hyperlipidemia E78.5 and Pure hypercholesterolemia E78.0 [facility] [address] [address] [id number] [place] [address] Jun, [facility] [address] [id number], [place] [id number] Apr, Syncope, unspecified syncope type R55 ; Chest pain, unspecified type R07.9 and Essential hypertension I10 [facility] [address] [id number], [place] [id number] Mar, Essential hypertension with goal blood pressure less than 130\/80 I10 and Pure hypercholesterolemia E78.0 [facility] [address] [address] [id number], [place] [address] February, Essential hypertension with goal blood pressure less than 130\/80 I10 ; Syncope and collapse R55 and Anxiety F41.9 [facility] [address] [address] [id number], [place] [address] February, [facility] [address] [id number], [place] [id number] Jan, Essential hypertension with goal blood pressure less than 130\/80 I10 ; Sexual dysfunction R37 and Anxiety F41.9 [facility] [address], [place] [address] Dec, Hyperglycemia R73.9 and Hyperlipidemia E78.5 [facility] [address] [id number], [place] [id number] Dec, Essential hypertension with goal blood pressure less than 130\/80 I10 and Pure hypercholesterolemia E78.0 [facility] [address] [address] [id number], [place] [address] Dec, Essential hypertension with goal blood pressure less than 130\/80 I10 and Pure hypercholesterolemia E78.0 [facility] [address], [place] [address] February, Generalized anxiety disorder 300.02 ; Unspecified episodic mood disorder 296.90 ; No condition on [place] II V71.09 ; Hypertension 401.9 and Bulging discs 722.2 [facility] [address] [address] [id number][place] [id number] Jan, [facility] [address] [id number], [place] [id number] Jan, [facility] [address] [place] [address] Jan, [facility] [id number] [place] [address], [place] [address] 13 Jan, 2015 [facility] [place] [facility] [address] [id number] [place] [address] 24 Dec, 2014 [facility] [place] [facility] [address] [id number] [place] [address] 24 Dec, 2014 [facility] [place] [facility] [address] [id number] [place] [address] 18 Dec, 2014 [facility] [place] [facility] [address] [id number] [place] [address] 18 Dec, 2014 [facility] [place] [facility] [address] [id number] [place] [address] Dec, [facility] [place] [facility] [address] [id number] [place] [address] Dec, [facility] [place] [facility] [address] [id number] [place] [address] 16 Nov, 2014 [facility] [place] [facility] [address] [id number] [place] [address] Nov, [facility] [place] [facility] [address] [id number] [place] [address] Nov, [facility] [place] [facility] [address] [id number] [place] [address] Nov, [facility] [place] [facility] [address] [id number] [place] [address] Oct, [facility] [place] [facility] [address] [id number] [place] [address] Oct, [facility] [place] [facility] [address] [id number] [place] [address] Oct, [facility] [place] [facility] [address] [id number] [place] [address] Oct, [facility] [place] [facility] [address] [id number] [place] [address] Oct, [facility] [address] [facility] [id number] [address] Oct, [facility] [address] [facility] [id number], [place] [address] Oct, [facility] [address] [facility] [id number], [place] [address] Jul, [facility] [address] [facility] [id number], [place] [address] May, IMMUNIZATIONS No Known Immunizations SOCIAL HISTORY Never Assessed REASON FOR VISIT Blood Pressure follow up. Sarah LOW PLAN OF CARE Activity Details Follow Up 3 Weeks Reason:b/p VITAL SIGNS Height 71 in 2017-12-26 Weight 276.6 lbs 2017-12-26 Temperature 99.6 degrees Fahrenheit 2017-12-26 Heart Rate 88 bpm 2017-12-26 Respiratory Rate 18 2017-12-26 BMI 38.57 kg/m2 2017-12-26 Blood pressure systolic 168 mmHg 2017-12-26 Blood pressure diastolic 120 mmHg 2017-12-26 MEDICATIONS Medication Instructions Dosage Frequency Start Date End Date Duration Status Atorvastatin Calcium 20 mg Orally Once a day TAKE ONE TABLET DAILY AT BEDTIME. AVOID GRAPEFRUIT JUICE 24h Not-Taking Fish Oil 1000 MG Orally twice a day 1 capsule 12h Active Aspir-81 81 MG Orally Once a day 1 tablet 24h Active Benazepril HCl 20 mg Orally Once a day 1 tablet 24h Oct, 30 day (s) Active Lopid 600 MG Orally Twice a day 1 tablet 12h Dec, 0 days Active Diovan 160 MG Orally Once a day at noon 1 tablet 0 days Active Metoprolol Succinate ER 50 mg Orally Once a day 1 tablet 24h 0 days Active BusPIRone HCl 10 mg Orally Twice a day 1 tablet for anxiety 12h Oct, Active Hydrochlorothiazide 12.5 MG Orally Once a day 1 tablet in the morning 24h Active Vitamin D 1000 UNIT Orally Once a day 1 tablet 24h Active RESULTS No Results PROCEDURES No Known [...]
--- OUTSIDE RECORDS SUMMARY | 2018-06-13 19:13 | XMS REPORT ---
Author Author [facility]IS JENA [facility] Address [address] [place] [address] Care Team Providers Care Handkerchief Folder Name Role Phone JENA SMITH Unavailable PROBLEMS Type Condition ICD9-CM Code IBF67-JU Code Onset Dates Condition Status SNOMED Code Problem Essential hypertension with goal blood pressure less than 130\/80 I10 Active 56918163 Problem Anxiety F41.9 Active 30436375 Problem Sexual dysfunction R37 Active 07710402 Problem Solitary pulmonary nodule 793.11 Active 090145323 Problem Lumbago 724.2 Active 365528986 Problem Pure hypercholesterolemia E78.0 Active 095468655 Problem Hyperlipidemia E78.5 Active 87137065 Problem Obesity (BMI 30-39.9) E66.9 Active 784545925 Problem Syncope, unspecified syncope type R55 Active 971470443 Problem Syncope and collapse R55 Active 617202843 Problem Fatigue, unspecified type R53.83 Active 91773196 Problem Lack of motivation Z91.89 Active 46704980 ALLERGIES No Information SOCIAL HISTORY Never Assessed PLAN OF CARE VITAL SIGNS MEDICATIONS Medication Instructions Dosage Frequency Start Date End Date Duration Status Lopid 600 MG Orally Twice a day 1 tablet 12h Dec, 0 days Active RESULTS No Results PROCEDURES No Known procedures IMMUNIZATIONS No Known Immunizations MEDICAL (GENERAL) HISTORY Type Description Date Medical History Hypertension Medical History Hyperlipidemia Medical History chronic low back pain Medical History obesity Medical History bilateral varicocele's and right hydrocele Hospitalization History High BP [address] [facility]. Evaluated and sent home. 02/2016
--- OUTSIDE RECORDS SUMMARY | 2018-06-13 19:13 | XMS REPORT ---
Author Author LUIS JENA [facility] Planet[facility] Address [address] [place] [address] Care Team Providers Care Design Project Manager Name Role Phone JENA SMITH Unavailable PROBLEMS Type Condition ICD9-CM Code QEB09-FA Code Onset Dates Condition Status SNOMED Code Problem Anxiety F41.9 Active 95152192 Problem Syncope, unspecified syncope type R55 Active 969098868 Problem Syncope and collapse R55 Active 190808511 Problem Resistant hypertension I10 Active 88743631 Problem Abdominal cramping R10.9 Active 684047960 Problem Lack of motivation Z91.89 Active 32815081 Problem Fatigue, unspecified type R53.83 Active 12081279 Problem Hyperlipidemia E78.5 Active 60704774 Problem Obesity (BMI 30-39.9) E66.9 Active 399971521 Problem Lumbago 724.2 Active 618224382 Problem Essential hypertension with goal blood pressure less than 130\/80 I10 Active 27107787 Problem Pure hypercholesterolemia E78.0 Active 475634787 Problem Solitary pulmonary nodule 793.11 Active 137974168 Problem Sexual dysfunction R37 Active 89383986 ALLERGIES No Information ENCOUNTERS Encounter Location Date [facility] [address] [id number] [place] [id number] Jan, [facility] [address] [id number] [place] [id number] Jan, Essential hypertension with goal blood pressure less than 130\/[address] [id number] [place] [address] Dec, [facility] [address] [id number] [place] [address] Dec, Essential hypertension with goal blood pressure less than 130\/[address] [id number] [place] [id number] Dec, [facility] [address] [id number] [place] [id number] Nov, Resistant hypertension I10 and Anxiety F41.[address] [facility] [address] [id number] [place] [id number] Nov, [facility] [address] [id number] [place] [id number] Oct, [facility] [address] [id number] [place] [address] Oct, Essential hypertension with goal blood pressure less than 130\/80 I[address] [facility] [address] [id number] [place] [id number] Oct, Essential hypertension with goal blood pressure less than 130\/80 I10 ; Obesity (BMI 30-39.9) E66.9 ; Abdominal cramping R10.9 and Anxiety F41.[address] [facility] [address] [id number], [place] [address] Jun, Essential hypertension with goal blood pressure less than 130\/[address] [facility] [address] [id number], [place] [address] May, Essential hypertension with goal blood pressure less than 130\/80 I[address] [facility] [address] [id number] [place] [address] May, [facility] [address] [id number] [place] [id number] May, Essential hypertension with goal blood pressure less than 130\/80 I10 ; Pure hypercholesterolemia E78.0 and Acute allergic rhinitis, unspecified seasonality, unspecified trigger J30.[address] [facility] [address] [id number] [place] [address] February, [facility] [address] [id number], [place] [id number] February, Essential hypertension with goal blood pressure less than 130\/80 I10 [facility] [address] [id number], [place] [id number] Dec, [facility] [address] [id number], [place] [id number] Nov, Pain in right testicle N50.811 and Essential hypertension with goal blood pressure less than 130\/80 I10 [facility] [address] [id number], [place] [address]8889[address] Jul, [facility] [address] [id number], [place] [address] Jul, Essential hypertension with goal blood pressure less than 130\/80 I10 ; Fatigue, unspecified type R53.83 ; Obesity (BMI 30-39.9) E66.9 and Lack of motivation Z91.89 [facility] [address] [id number], [place] [address] Jul, [facility] [address] [id number], [place] [address] Jul, Hyperlipidemia E78.5 and Pure hypercholesterolemia E78.0 [facility] [address] [place] [address] AVE [id number], [place] [address] Jun, Hyperglycemia R73.9 ; Hyperlipidemia E78.5 and Pure hypercholesterolemia E78.0 [facility] [address] [place] [address] AVE [id number], [place] [id number] Jun, [facility] [address] [id number], [place] [id number] Apr, Syncope, unspecified syncope type R55 ; Chest pain, unspecified type R07.9 and Essential hypertension I10 [facility] [address] [id number], [place] [address] Mar, Essential hypertension with goal blood pressure less than 130\/80 I10 and Pure hypercholesterolemia E78.0 [facility] [id number], [place] [address] February, Essential hypertension with goal blood pressure less than 130\/80 I10 ; Syncope and collapse R55 and Anxiety F41.9 [facility] [address] [id number], [place] [address] February, [facility] [id number], [place] [id number] Jan, Essential hypertension with goal blood pressure less than 130\/80 I10 ; Sexual dysfunction R37 and Anxiety F41.9 [facility] [address], [place] [address] Dec, Hyperglycemia R73.9 and Hyperlipidemia E78.5 [facility] [address] [id number], [place] [address]364[address] Dec, Essential hypertension with goal blood pressure less than 130\/80 I10 and Pure hypercholesterolemia E78.0 [facility] [address] [id number], [place] [address] Dec, Essential hypertension with goal blood pressure less than 130\/80 I10 and Pure hypercholesterolemia E78.0 [facility] [address]00565100[place], [place] [address] February, Generalized anxiety disorder 300.02 ; Unspecified episodic mood disorder 296.90 ; No condition on [place] II V71.09 ; Hypertension 401.9 and Bulging discs 722.2 [facility] [address] [id number], [place] [id number] Jan, [facility] [address] [id number], [place] [address] Jan, [facility] [address]100[place], [place] [address] Jan, [facility] [id number] [place] [address] Jan, [facility] [address]100[place], [place] [address] Dec, [facility] [id number] [place] [address] [place] [address] Dec, [facility] [place] [facility] [address] [id number] [place] [address]- [address] Dec, [facility] [place] [facility] [address] [id number] [place] [address]- 9794 Dec, [facility] [place] [facility] [address] [id number] [place] [address]- 6[address] Dec, [facility] [place] [facility] [address] [id number] [place] [address]- 3827 Dec, [facility] [place] [facility] [address] [id number] [place] [address]- [address]29 Nov, [facility] [place] [facility] [address] [id number] [place] [address]- [address] Nov, [facility] [place] [facility] [address] [id number] [place] [address]- [address]351 Nov, [facility] [place] [facility] [address] [id number] [place] [address]- 2663 Nov, [facility] [place] [facility] [address] [id number] [place] [address]- [address] Oct, [facility] [place] [facility] [address] [id number] [place] [address]- [address] Oct, [facility] [place] [facility] [address] [id number] [place] [address]- 4659 Oct, [facility] [place] [facility] [address] [id number] [place] [address]- 3264 Oct, [facility] [place] [facility] [address] [id number] [place] [address]- 2554 Oct, [facility] [place] [facility] [address] [id number] [place] [address]- 1414 Oct, [facility] [place] [facility] [address] [id number] [place] [address]- 3568 Oct, [facility] [address] [facility] [id number] [place] [address] Jul, [facility] [address] [facility] [id number][place] [address] May, IMMUNIZATIONS No Known Immunizations SOCIAL HISTORY Never Assessed REASON FOR VISIT refill PLAN OF CARE VITAL SIGNS MEDICATIONS Medication Instructions Dosage Frequency Start Date End Date Duration Status Diovan 160 MG Orally Once a day at noon 1 tablet 0 days Active Metoprolol Succinate ER 50 mg Orally Once a day 1 tablet 24h 0 days Active Amlodipine Besylate 10 mg Orally daily 1 tablet Once a day Orally 24h 0 days Active RESULTS No Results PROCEDURES [...] High BP 2014 [address] [facility]. Evaluated and sent home. 02/2016
--- OUTSIDE RECORDS SUMMARY | 2018-06-13 19:13 | XMS REPORT ---
Author Author [facility]IS [facility]ENA [facility] Address [address] [place] [address] Care Team Providers Care Biomedical Instrument Technician Name Role Phone JENA SMITH Unavailable PROBLEMS Type Condition ICD9-CM Code FFR65-WH Code Onset Dates Condition Status SNOMED Code Problem Anxiety F41.9 Active 03286537 Problem Syncope, unspecified syncope type R55 Active 412028873 Problem Syncope and collapse R55 Active 194382595 Problem Resistant hypertension I10 Active 59739452 Problem Abdominal cramping R10.9 Active 900328351 Problem Lack of motivation Z91.89 Active 73361594 Problem Fatigue, unspecified type R53.83 Active 29923719 Problem Hyperlipidemia E78.5 Active 30061413 Problem Obesity (BMI 30-39.9) E66.9 Active 146889093 Problem Lumbago 724.2 Active 063542594 Problem Essential hypertension with goal blood pressure less than 130\/80 I10 Active 60050465 Problem Pure hypercholesterolemia E78.0 Active 029740169 Problem Solitary pulmonary nodule 793.11 Active 154839243 Problem Sexual dysfunction R37 Active 22098624 ALLERGIES No Information ENCOUNTERS Encounter Location Date [facility] [address] [id number] [id number] May, [facility] [address] [id number][place] [id number] Jan, [facility] [address] [id number][place] [address] Jan, Essential hypertension with goal blood pressure less than 130\/80 I10 [facility] [address] [id number] [place] [id number] Dec, [facility] [address] [id number][place] [id number] Dec, Essential hypertension with goal blood pressure less than 130\/[address] [facility] [address] [id number] [place] [address] Dec, [facility] [address] [id number] [place] [id number] Nov, Resistant hypertension I10 and Anxiety F41.[address] [facility] [address] [id number] [place] [id number] Nov, [facility] [address] [id number] [place] [id number] Oct, [facility] [address] [id number] [place] [address] Oct, Essential hypertension with goal blood pressure less than 130\/80 [address] [facility] [address] [id number] [place] [address] Oct, Essential hypertension with goal blood pressure less than 130\/80 I10 ; Obesity (BMI 30-39.9) E66.9 ; Abdominal cramping R10.9 and Anxiety F41.[address] [facility] [address] [id number] [place] [id number] Jun, Essential hypertension with goal blood pressure less than 130\/80 [address] [facility] [address] [id number] [place] [id number] May, Essential hypertension with goal blood pressure less than 130\/80 I[address] [facility] [address] [id number] [place] [id number] May, [facility] [address] [id number] [place] [address] May, Essential hypertension with goal blood pressure less than 130\/80 I10 ; Pure hypercholesterolemia E78.0 and Acute allergic rhinitis, unspecified seasonality, unspecified trigger J30.[address] [facility] [address] [id number] [place] [id number] February, [facility] [address] [id number] [place] [address] February, Essential hypertension with goal blood pressure less than 130\/80 I[address] [facility] [address] [id number] [place] [address] Dec, [facility] [address] [id number], [place] [address] Nov, Pain in right testicle N50.811 and Essential hypertension with goal blood pressure less than 130\/80 I[address] [facility] [address] [id number] [place] [address] Jul, [facility] [address] [id number] [place] [id number] Jul, Essential hypertension with goal blood pressure less than 130\/80 I10 ; Fatigue, unspecified type R53.83 ; Obesity (BMI 30-39.9) E66.9 and Lack of motivation Z91.89 [facility] [address] [id number], [place] [address] Jul, [facility] [address] [id number], [place] [address] Jul, Hyperlipidemia E78.5 and Pure hypercholesterolemia E78.0 [facility] [address] [id number], [place] [address] Jun, Hyperglycemia R73.9 ; Hyperlipidemia E78.5 and Pure hypercholesterolemia E78.0 [facility] [address] [id number] [place] [id number] Jun, [facility] [address] [id number] [place] [id number] Apr, Syncope, unspecified syncope type R55 ; Chest pain, unspecified type R07.9 and Essential hypertension I10 [facility] [address] [id number] [place] [id number] Mar, Essential hypertension with goal blood pressure less than 130\/80 I10 and Pure hypercholesterolemia E78.[address] [facility] [address] [id number], [place] [address] February, Essential hypertension with goal blood pressure less than 130\/80 I10 ; Syncope and collapse R55 and Anxiety F41.9 [facility] [address] [id number], [place] [id number] February, [facility] [address] [id number], [place] [address] Jan, Essential hypertension with goal blood pressure less than 130\/80 I10 ; Sexual dysfunction R37 and Anxiety F41.9 [facility] [place] [address] [address] Dec, Hyperglycemia R73.9 and Hyperlipidemia E78.5 [facility] [address] [id number], [place] [id number] Dec, Essential hypertension with goal blood pressure less than 130\/80 I10 and Pure [facility]ch[facility]olemia E78.0 [facility] [address] [id number], [place] [address] Dec, Essential hypertension with goal blood pressure less than 130\/80 I10 and Pure hypercholesterolemia E78.0 [facility] [place] [address] [place] [address] February, Generalized anxiety disorder 300.02 ; Unspecified episodic mood disorder 296.90 ; No condition on [place] II V71.09 ; Hypertension 401.9 and Bulging discs 722.2 [facility] [address] [id number], [place] [id number] Jan, [facility] [address] [id number], [place] [address] Jan, [facility] [place] [address], [place] [address] Jan, [facility] [place] [address], [place] [address] Jan, [facility] [place] [id number] [place] [address] Dec, [facility] [place] [facility] [address] [id number] [place] [address] 24 Dec, 2014 [facility] [place] [facility] [address] [id number] [place] [address] Dec, [facility] [place] [facility] [address] [id number] [place] [address] Dec, [facility] [place] [facility] [address] [id number] [place] [address] Dec, [facility] [place] [facility] [address] [id number] [place] [address] Dec, [facility] [place] [facility] [address] [id number] [place] [address] Nov, [facility] [place] [facility] [address] [id number] [place] [address] Nov, [facility] [place] [facility] [address] [id number] [place] [address] Nov, [facility] [place] [facility] [address] [id number] [place] [address] Nov, [facility] [place] [facility] [address] [facility] [id number] [place] [address] Oct, [facility] [place] [facility] [address] [id number] [place] [address] Oct, [facility] [place] [facility] [address] [id number] [place] [address] Oct, [facility] [place] [facility] [address] [id number] [place] [address] Oct, [facility] [place] [facility] [address] [id number] [place] [address] Oct, [facility] [place] [facility] [address] [id number] [place] [address] Oct, [facility] [place] [address] [facility] [id number] [place] [address] Oct, [facility] [place] [address] [facility] [id number] [address] Jul, [facility] [place] [address] [facility] [id number] [place] [address] May, IMMUNIZATIONS No Known Immunizations SOCIAL HISTORY Never Assessed REASON FOR VISIT Blood pressure check PLAN OF CARE VITAL SIGNS Height 71 in 2018-01-12 Blood pressure systolic 164 mmHg 2018-01-12 Blood pressure diastolic 92 mmHg 2018-01-12 MEDICATIONS Unknown Medications RESULTS No Results PROCEDURES [...]
--- OUTSIDE RECORDS SUMMARY | 2018-06-13 19:14 | XMS REPORT ---
Author Author [facility]IS [facility]ENA [facility] Address [address] [place] [address] Care Team Providers Care Loss Prevention Officer Name Role Phone JENA SMITH Unavailable PROBLEMS Type Condition ICD9-CM Code BAX77-MO Code Onset Dates Condition Status SNOMED Code Problem Anxiety F41.9 Active 92037062 Problem Syncope, unspecified syncope type R55 Active 777229511 Problem Syncope and collapse R55 Active 377298670 Problem Resistant hypertension I10 Active 86097526 Problem Abdominal cramping R10.9 Active 892635280 Problem Lack of motivation Z91.89 Active 74262347 Problem Fatigue, unspecified type R53.83 Active 34752761 Problem Hyperlipidemia E78.5 Active 65142646 Problem Obesity (BMI 30-39.9) E66.9 Active 215119096 Problem Lumbago 724.2 Active 044903776 Problem Essential hypertension with goal blood pressure less than 130\/80 I10 Active 98853060 Problem Pure hypercholesterolemia E78.0 Active 209330844 Problem Solitary pulmonary nodule 793.11 Active 557294613 Problem Sexual dysfunction R37 Active 16007907 ALLERGIES No Information ENCOUNTERS Encounter Location Date Diagnosis [facility] [address] [id number] [place] [id number] Jan, [facility] [address] [id number] [place] [address] Jan, Essential hypertension with goal blood pressure less than 130\/[address] [id number] [place] [address] Dec, [facility] [address] [id number] [place] [address] Dec, Essential hypertension with goal blood pressure less than 130\/[address] [id number] [place] [address] Dec, [facility] [address] [id number] [place] [address] Nov, Resistant hypertension I10 and Anxiety F41.[address] [facility] [address] [id number] [place] [id number] Nov, [facility] [address] [id number] [place] [id number] Oct, [facility] [address] [id number] [place] [address] Oct, Essential hypertension with goal blood pressure less than 130\/80 I[address] [facility] [address] [id number] [place] [address] Oct, Essential hypertension with goal blood pressure less than 130\/80 I10 ; Obesity (BMI 30-39.9) E66.9 ; Abdominal cramping R10.9 and Anxiety F41.[address] [facility] [address] [id number] [place] [address] Jun, Essential hypertension with goal blood pressure less than 130\/80 I[address] [facility] [address] [id number] [place] [id number] May, Essential hypertension with goal blood pressure less than 130\/80 I[address] [facility] [address] [id number] [place] [address] May, [facility] [address] [id number] [place] [id number] May, Essential hypertension with goal blood pressure less than 130\/80 I10 ; Pure hypercholesterolemia E78.0 and Acute allergic rhinitis, unspecified seasonality, unspecified trigger J30.[address] [facility] [address] [id number] [place] [id number] February, [facility] [address] [id number] [place] [address] February, Essential hypertension with goal blood pressure less than 130\/80 I10 [facility] [address] [id number] [place] [id number] Dec, [facility] [address] [id number] [place] [address] Nov, Pain in right testicle N50.811 and Essential hypertension with goal blood pressure less than 130\/80 I10 [facility] [address] [id number] [place] [id number] Jul, [facility] [address] [id number] [place] [address] Jul, Essential hypertension with goal blood pressure less than 130\/80 I10 ; Fatigue, unspecified type R53.83 ; Obesity (BMI 30-39.9) E66.9 and Lack of motivation Z91.89 [facility] [address] [id number] [place] [address] Jul, [facility] [employer] [id number] [place] [address] Jul, Hyperlipidemia E78.5 and Pure hypercholesterolemia E78.0 [facility] [address] [place] [address] AVE [id number] [place] [address] Jun, Hyperglycemia R73.9 ; Hyperlipidemia E78.5 and Pure hypercholesterolemia E78.0 [facility] [employer] [place] [address] AVE [id number] [place] [address] Jun, [facility] [employer] [id number] [place] [address] Apr, Syncope, unspecified syncope type R55 ; Chest pain, unspecified type R07.9 and Essential hypertension I10 [facility] [address] [id number] [place] [id number] Mar, Essential hypertension with goal blood pressure less than 130\/80 I10 and Pure hypercholesterolemia E78.0 [facility] [employer] [address] [id number] [place] [address] February, Essential hypertension with goal blood pressure less than 130\/80 I10 ; Syncope and collapse R55 and Anxiety F41.9 [facility] [address] [id number] [place] [address] February, [facility] [address] [id number] [place] [address] Jan, Essential hypertension with goal blood pressure less than 130\/80 I10 ; Sexual dysfunction R37 and Anxiety F41.9 [facility] [address] [address] Dec, Hyperglycemia R73.9 and Hyperlipidemia E78.5 [facility] [address] [id number] [place] [address]32 Dec, Essential hypertension with goal blood pressure less than 130\/80 I10 and Pure hypercholesterolemia E78.0 [facility] [address] [id number] [place] [id number] Dec, Essential hypertension with goal blood pressure less than 130\/80 I10 and Pure hypercholesterolemia E78.0 [facility] [address] [address] February, Generalized anxiety disorder 300.02 ; Unspecified episodic mood disorder 296.90 ; No condition on [place] II V71.09 ; Hypertension 401.9 and Bulging discs 722.2 [facility] [address] [id number] [place] [address] Jan, [facility] [address] [id number] [place] [id number] Jan, [facility] [address] [address] Jan, [facility] [id number] [place] [address] Jan, [facility] [address]65[address] [address] Dec, [facility] [id number] [place] [address] [place] [address] Dec, [facility] [place] [facility] [address] [id number] [place] [address]- [address] Dec, [facility] [place] [facility] [address] [id number] [place] [address]- 1510 Dec, [facility] [place] [facility] [address] [id number] [place] [address]- [address] Dec, [facility] [place] [facility] [address] [id number] [place] [address]- [address]98 Dec, [facility] [place] [facility] [address] [id number] [place] [address]- 46[address] Nov, [facility] [place] [facility] [address] [id number] [place] [address]- 4[address] Nov, [facility] [place] [facility] [address] [id number] [place] [address]- 3586 Nov, [facility] [place] [facility] [address] [id number] [place] [address]- [address]47 Nov, [facility] [place] [facility] [address] [id number] [place] [address]- 2713 Oct, [facility] [place] [facility] [address] [id number] [place] [address]- [address] Oct, [facility] [place] [facility] [address] [id number] [place] [address]- [address] Oct, [facility] [place] [facility] [address] [id number] [place] [address]- [address] Oct, [facility] [place] [facility] [address] [id number] [place] [address]- [address] Oct, [facility] [place] [facility] [address] [id number] [place] [address]- 4844 Oct, [facility] [place] [facility] [address] [id number] [place] [address]- [address] Oct, [facility] [address] [facility] [id number] [place] [address]- [address] Jul, [facility] [address] [facility] [id number] [address] May, IMMUNIZATIONS No Known Immunizations SOCIAL HISTORY Never Assessed REASON FOR VISIT Medication refill request PLAN OF CARE VITAL SIGNS MEDICATIONS Medication Instructions Dosage Frequency Start Date End Date Duration Status Hydrochlorothiazide 12.5 MG Orally Once a day 1 tablet in the morning 24h February, Active RESULTS No Results PROCEDURES No Known procedures INSTRUCTIONS MEDICATIONS ADMINISTERED No Known Medications MEDICAL (GENERAL) HISTORY Type Description Date Medical History Hypertension Medical History Hyperlipidemia Medical History chronic low back pain Medical History obesity Medical History bilateral varicocele's and right hydrocele Medical History CVD risk 6.5% 10 yr, no statin indicated at this time Hospitalization History High BP 2014 Hospitalization History [facility] ER. Evaluated and sent home. 02/2016
--- OUTSIDE RECORDS SUMMARY | 2018-06-13 19:14 | XMS REPORT ---
Author Author ALFRED CAMP [facility] Address Unknown Phone Unavailable Care Team Providers Care Gate Mortiser Operator Name Role Phone ALFRED CAMP Unavailable Unavailable PROBLEMS Type Condition ICD9-CM Code [id number] Code Onset Dates Condition Status SNOMED Code Problem Anxiety F41.9 Active 75922870 Problem Syncope, unspecified syncope type R55 Active 922872310 Problem Syncope and collapse R55 Active 828403817 Problem Resistant hypertension I10 Active 70667784 Problem Abdominal cramping R10.9 Active 080978470 Problem Lack of motivation Z91.89 Active 93680645 Problem Fatigue, unspecified type R53.83 Active 59993841 Problem Hyperlipidemia E78.5 Active 85813158 Problem Obesity (BMI 30-39.9) E66.9 Active 643311701 Problem Lumbago 724.2 Active 903116715 Problem Essential hypertension with goal blood pressure less than 130\/80 I10 Active 41894901 Problem Pure hypercholesterolemia E78.0 Active 766755069 Problem Solitary pulmonary nodule 793.11 Active 569302193 Problem Sexual dysfunction R37 Active 61117910 ALLERGIES No Information ENCOUNTERS Encounter Location Date Diagnosis [facility] [address] [id number][place] [id number] Dec, [facility] [address] [id number], [place] [id number] Dec, [facility] [address] [address] [id number] [place] [id number] Nov, Resistant hypertension I10 and Anxiety F41.9 [facility] [address] [id number] [place] [id number] Nov, [facility] [address] [id number][place] [id number] Oct, [facility] [address] [id number][place] [id number] Oct, Essential hypertension with goal blood pressure less than 130\/[address] [facility] [id number] [place] [id number] Oct, Essential hypertension with goal blood pressure less than 130\/80 I10 ; Obesity (BMI 30-39.9) E66.9 ; Abdominal cramping R10.9 and Anxiety F41.[address] [facility] [address] [id number] [place] [id number] Jun, Essential hypertension with goal blood pressure less than 130\/[address] [facility] [id number] [place] [id number] May, Essential hypertension with goal blood pressure less than 130\/80 [address] [facility] [id number] [place] [id number] May, [facility] [address] [id number], [place] [id number] May, Essential hypertension with goal blood pressure less than 130\/80 I10 ; Pure hypercholesterolemia E78.0 and Acute allergic rhinitis, unspecified seasonality, unspecified trigger J30.9 [facility] [address] [id number], [place] [id number] February, [facility] [address] [id number], [place] [id number] February, Essential hypertension with goal blood pressure less than 130\/80 [address] [facility] [address] [id number] [place] [id number] Dec, [facility] [address] [id number] [place] [id number] Nov, Pain in right testicle N50.811 and Essential hypertension with goal blood pressure less than 130\/80 I[address] [facility] [address] [id number] [place] [id number] Jul, [facility] [address] [id number], [place] [id number] Jul, Essential hypertension with goal blood pressure less than 130\/80 I10 ; Fatigue, unspecified type R53.83 ; Obesity (BMI 30-39.9) E66.9 and Lack of motivation Z91.[address] [id number], [place] [id number] Jul, [facility] [address] [id number], [place] [id number] Jul, Hyperlipidemia E78.5 and Pure hypercholesterolemia E78.[address] [id number], [place] [id number] Jun, Hyperglycemia R73.9 ; Hyperlipidemia E78.5 and Pure hypercholesterolemia E78.[address] [id number], [place] [id number] Jun, [facility] [address] [id number], [place] [id number] Apr, Syncope, unspecified syncope type R55 ; Chest pain, unspecified type R07.9 and Essential hypertension I10 [address] [id number], [place] [id number] Mar, Essential hypertension with goal blood pressure less than 130\/80 I10 and Pure hypercholesterolemia E78.[address] [id number], [place] [id number] February, Essential hypertension with goal blood pressure less than 130\/80 I10 ; Syncope and collapse R55 and Anxiety F41.[address] [id number], [place] [id number] February, [address] [id number], [place] [id number] Jan, Essential hypertension with goal blood pressure less than 130\/80 I10 ; Sexual dysfunction R37 [address] [facility] [address] [facility] [id number] [place] [id number] Dec, Hyperglycemia R73.9 and Hyperlipidemia E78.5 [facility] [address] [id number], [place] [id number] Dec, Essential hypertension with goal blood pressure less than 130\/80 I10 and Pure hypercholesterolemia E78.0 [facility] [address] [id number], [place] [id number] Dec, Essential hypertension with goal blood pressure less than 130\/80 I10 and Pure hypercholesterolemia E78.0 [facility] [address] [place] [address] February, Generalized anxiety disorder 300.02 ; Unspecified episodic mood disorder 296.90 ; No condition on [place] II V71.09 ; Hypertension 401.9 and Bulging discs 722.2 [facility] [address] [id number], [place] [id number] Jan, [facility] [address] [id number], [place] [id number] Jan, [facility] [address] [place] [phone] Jan, [facility] [id number] [place] [address] Jan, [facility] [id number] [place] [id number] 24 Dec, 2014 [facility] [id number] [place] [address] 24 Dec, 2014 [facility] [id number] [place] [phone] Dec, [facility] [id number] [place] [address] 18 Dec, 2014 [facility] [id number] [place] [phone][address] Dec, [facility] [id number] [place] [phone] Dec, [facility] [address] [facility] [id number] [address] Nov, [facility] [address]00565100[place] [address] Nov, [facility] [address] [facility] [id number] [place] [address] Nov, [facility] [address]00565100[place] [address] Nov, [facility] [address] [id number] [address] Oct, [facility] [address]00565100[place] [address] Oct, [facility] [address]00565100[place] [address] Oct, [facility] [address]00565100[place] [address] Oct, [facility] [address]00565100[place] [address] Oct, [facility] [address] [id number] [address] Oct, [facility] [address] [id number] [address] Oct, [facility] [address] [id number] [address] Jul, [facility] [address] [id number] [address] May, IMMUNIZATIONS No Known Immunizations SOCIAL HISTORY Never Assessed REASON FOR VISIT [facility] Contact PLAN OF CARE VITAL SIGNS MEDICATIONS Unknown [...]
--- OUTSIDE RECORDS SUMMARY | 2018-06-13 19:14 | XMS REPORT ---
Author Author JENA SMITH [facility] Address [address] [place] [address] Care Team Providers Care Campus Chaplain Name Role Phone JENA SMITH Unavailable PROBLEMS Type Condition ICD9-CM Code [id number] Code Onset Dates Condition Status SNOMED Code Problem Pure hypercholesterolemia E78.0 Active 065801266 Problem Anxiety F41.9 Active 53075736 Problem Essential hypertension with goal blood pressure less than 130\/80 I10 Active 60467979 Problem Lumbago 724.2 Active 164773483 Problem Solitary pulmonary nodule 793.11 Active 075734347 Problem Obesity (BMI 30-39.9) E66.9 Active 531035860 Problem Fatigue, unspecified type R53.83 Active 73119765 Problem Syncope and collapse R55 Active 113296003 Problem Sexual dysfunction R37 Active 55065795 Problem Lack of motivation Z91.89 Active 82123250 Problem Syncope, unspecified syncope type R55 Active 940521391 ALLERGIES Unknown Allergies SOCIAL HISTORY No smoking Hx information available PLAN OF CARE VITAL SIGNS MEDICATIONS Unknown Medications RESULTS No Results PROCEDURES No Known procedures IMMUNIZATIONS No Known Immunizations
--- OUTSIDE RECORDS SUMMARY | 2018-06-13 19:14 | XMS REPORT ---
Author Author JENA SMITH [facility] eClinicalWorks Address Unknown Phone Unavailable Care Team Providers Care Environmental Aid Name Role Phone JENA SMITH CP Unavailable Allergies, Adverse Reactions, Alerts Substance Reaction Event Type Lisinopril hives Drug Allergy Hydrochlorothiazide dizziness Drug Allergy Problems Problem Type Condition Code Onset Dates [...] Syncope, unspecified syncope type R55 Active Assessment Fatigue, unspecified type R53.83 Active Assessment Essential hypertension with goal blood pressure less than 130\/80 I10 Active Assessment Lack of motivation Z91.89 Active Problem Lumbago 724.2 Active Assessment Obesity (BMI 30-39.9) E66.9 Active Problem Solitary pulmonary nodule 793.11 Active Medications Medication Code System Code Instructions Start Date End Date Status Dosage Diovan [facility] [address]-67 160 MG Orally Once a day Nov 19, 2014 by oral route 160 mg at noon Aspir-[address] [facility] [address]-14 81 MG Orally Once a day 1 tablet Metoprolol Succinate ER [facility] 82360228289 50 MG TAKE 1 TABLET DAILY AT BEDTIME Amlodipine Besylate [facility] 19546232824 10 MG 1 tablet Once a day Orally Fish Oil [facility] [address]-90 1000 MG Orally twice a day 1 capsule Atorvastatin Calcium [facility] [address]-01 20 mg Orally Once a day TAKE ONE TABLET DAILY AT BEDTIME. AVOID GRAPEFRUIT JUICE Procedures Procedure Coding System Code Date B12, VITAMIN (UP TO 1000 MCG) CPT-4 J3420 Aug 25, 2016 THER/PROPH/DIAG INJ, SC/IM CPT-4 59798 Aug 25, 2016 Office Visit, Est Pt., Level 3 CPT-4 35592 Aug 25, 2016 Vital Signs Date/Time: Aug 25, 2016 Cardiac Monitoring Heart Rate 88 bpm Weight 276.2 lbs Height 71 in BMI 38.52 Index Blood Pressure Diastolic 82 mmHg Blood Pressure Systolic 132 mmHg Results No Known Results Summary Purpose eClinicalWorks Submission
--- OUTSIDE RECORDS SUMMARY | 2018-06-13 19:14 | XMS REPORT ---
Author Author JEANE VALDEZ Organization eClinicalWorks Address Unknown Phone Unavailable Care Team Providers Care Press Operator Apprentice Name Role Phone JEANE VALDEZ CP Unavailable Allergies, Adverse Reactions, Alerts Substance Reaction Event Type Lisinopril hives Drug Allergy Hydrochlorothiazide dizziness Drug Allergy Problems Problem Type Condition Code Onset Dates Condition Status Problem Obesity, unspecified 278.00 Active Problem Solitary pulmonary nodule 793.11 Active Problem Counseling on substance use and abuse V65.42 Active Problem Syncope and collapse R55 Active Problem Sexual dysfunction R37 Active Problem Syncope, unspecified syncope type R55 Active Problem Pure hypercholesterolemia E78.0 Active Problem Anxiety state, unspecified 300.00 Active Problem Anxiety F41.9 Active Problem Essential hypertension with goal blood pressure less than 130\/80 I10 Active Assessment Essential hypertension I10 Active Assessment Chest pain, unspecified type R07.9 Active Assessment Syncope, unspecified syncope type R55 Active Problem Lumbago 724.2 Active Medications Medication Code System Code Instructions Start Date End Date Status Dosage Atorvastatin Calcium [facility] [address]-51 20 mg Orally Once a day 1 tablet Diovan [facility] [address]-21 Nov 19, 2014 by oral route 160 mg at noon Aspir-81 [facility] [address]-13 81 MG Orally Once a day 1 tablet Fish Oil [facility] [address]-33 1000 MG Orally twice a day 1 capsule Amlodipine Besylate [facility] [address]-44 10 MG Orally Once a day 1 tablet Metoprolol Succinate ER [facility] [address]-39 25 MG Orally Once a day 1 tablet Procedures Procedure Coding System Code Date Office Visit, Est Pt., Level 5 CPT-4 56353 May 20, 2016 MEASURE BLOOD OXYGEN LEVEL CPT-4 18141 May 20, 2016 Vital Signs Date/Time: May 20, 2016 Cardiac Monitoring Heart Rate 68 bpm Weight 257 lbs Height 71 in Blood Pressure Diastolic 82 mmHg Blood Pressure Systolic 138 mmHg Results No Known Results Summary Purpose eClinicalWorks Submission
--- OUTSIDE RECORDS SUMMARY | 2018-06-13 19:14 | XMS REPORT ---
Author Author [facility] [place] Address [address] [place] [address] Care Team Providers Care Construction Trades Contractor Name Role Phone JENA SMITH Unavailable PROBLEMS Type Condition ICD9-CM Code [id number] Code Onset Dates Condition Status SNOMED Code Problem Essential hypertension with goal blood pressure less than 130\/80 I10 Active 20594375 Problem Anxiety F41.9 Active 66769545 Problem Sexual dysfunction R37 Active 96189208 Problem Solitary pulmonary nodule 793.11 Active 100200582 Problem Lumbago 724.2 Active 035668734 Problem Pure hypercholesterolemia E78.0 Active 816552584 Problem Hyperlipidemia E78.5 Active 55032215 Problem Obesity (BMI 30-39.9) E66.9 Active 957930378 Problem Syncope, unspecified syncope type R55 Active 220637482 Problem Syncope and collapse R55 Active 448298427 Problem Fatigue, unspecified type R53.83 Active 48044725 Problem Lack of motivation Z91.89 Active 48435379 ALLERGIES Substance Reaction Event Type Date Status Lisinopril hives Drug Allergy February, Active SOCIAL HISTORY Never Assessed PLAN OF CARE Activity Details Follow Up 3 Months Reason:b/p VITAL SIGNS Height 71 in 2017-03-28 Weight 275.3 lbs 2017-03-28 Temperature 97.8 degrees Fahrenheit 2017-03-28 Heart Rate 88 bpm 2017-03-28 Respiratory Rate 18 2017-03-28 BMI 38.39 kg/m2 2017-03-28 Blood pressure systolic 138 mmHg 2017-03-28 Blood pressure diastolic 80 mmHg 2017-03-28 MEDICATIONS Medication Instructions Dosage Frequency Start Date End Date Duration Status Metoprolol Succinate ER 50 mg Orally Once a day 1 tablet 24h 0 days Active Aspir-81 81 MG Orally Once a day 1 tablet 24h Active Fish Oil 1000 MG Orally twice a day 1 capsule 12h Active Atorvastatin Calcium 20 mg Orally Once a day TAKE ONE TABLET DAILY AT BEDTIME. AVOID GRAPEFRUIT JUICE 24h Active Amlodipine Besylate 10 mg Orally daily 1 tablet Once a day Orally 24h 0 days Active Diovan 160 MG Orally Once a day at noon 1 tablet 0 days Active Hydrochlorothiazide 12.5 MG Orally Once a day 1 tablet in the morning 24h February, Active Lopid 600 MG Orally Twice a day 1 tablet 12h Dec, 0 days Active RESULTS No Results PROCEDURES No Known procedures IMMUNIZATIONS No Known Immunizations MEDICAL (GENERAL) HISTORY Type Description Date Medical History Hypertension Medical History Hyperlipidemia Medical History chronic low back pain Medical History obesity Medical History bilateral varicocele's and right hydrocele Hospitalization History High BP 2014 Hospitalization History [facility]. Evaluated and sent home. 02/2016
--- OUTSIDE RECORDS SUMMARY | 2018-06-13 19:14 | XMS REPORT ---
Author Author JENA SMITH Organization eClinicalWorks Address Unknown Phone Unavailable Care Team Providers Care Infection Control Manager Name Role Phone JENA SMITH CP Unavailable Allergies, Adverse Reactions, Alerts Substance Reaction Event Type Lisinopril hives Drug Allergy Problems Problem Type Condition Code Onset Dates Condition Status Assessment Essential hypertension with goal blood pressure less than 130\/80 I10 Active Problem Obesity, unspecified 278.00 Active Problem Lumbago 724.2 Active Assessment Anxiety F41.9 Active Assessment Sexual dysfunction R37 Active Problem Anxiety F41.9 Active Problem Essential hypertension with goal blood pressure less than 130\/80 I10 Active Problem Sexual dysfunction R37 Active Problem Solitary pulmonary nodule 793.11 Active Problem Counseling on substance use and abuse V65.42 Active Problem Pure hypercholesterolemia E78.0 Active Problem Anxiety state, unspecified 300.00 Active Medications Medication Code System Code Instructions Start Date End Date Status Dosage Fish Oil [facility] [address]-59 1000 MG Orally twice a day 1 capsule Sertraline HCl [facility] [address]-89 25 MG Orally Once a day February 17, 2016 1 tablet Diovan [facility] [address]-70 Nov 19, 2014 by oral route 160 mg at noon Amlodipine Besylate [facility] [address]-33 10 MG Orally Once a day 1 tablet Hydrochlorothiazide [facility] [address]-26 25 MG Orally Once a day February 17, 2016 1 tablet in am Aspir-81 [facility] [address]-91 81 MG Orally Once a day 1 tablet Atorvastatin Calcium [facility] [address]-04 20 mg Orally Once a day 1 tablet Procedures Procedure Coding System Code Date Office Visit, Est Pt., Level 3 CPT-4 45156 February 17, 2016 Vital Signs Date/Time: February 17, 2016 Temperature 98.3 F Weight 254.8 lbs Height 71 in BMI 35.53 Index Blood Pressure Diastolic 98 mmHg Blood Pressure Systolic 146 mmHg Cardiac Monitoring Heart Rate 67 bpm Results No Known Results Summary Purpose eClinicalWorks Submission
--- OUTSIDE RECORDS SUMMARY | 2018-06-13 19:14 | XMS REPORT ---
Author Author LUIS JENA [facility] Address [address] [place] [address] Care Team Providers Care Teachers Assistant Name Role Phone JENA SMITH Unavailable PROBLEMS Type Condition ICD9-CM Code [id number] Code Onset Dates Condition Status SNOMED Code Problem Pure hypercholesterolemia E78.0 Active 741221472 Problem Anxiety F41.9 Active 95003300 Problem Essential hypertension with goal blood pressure less than 130\/80 I10 Active 24271488 Assessment Hyperlipidemia E78.5 Jun, Active 73989286 Assessment Hyperglycemia R73.9 Jun, Active 29853735 Problem Lumbago 724.2 Active 194911677 Problem Solitary pulmonary nodule 793.11 Active 084590321 Problem Obesity (BMI 30-39.9) E66.9 Active 591293072 Problem Fatigue, unspecified type R53.83 Active 53281718 Problem Syncope and collapse R55 Active 928537168 Problem Sexual dysfunction R37 Active 02163551 Problem Lack of motivation Z91.89 Active 69238190 Problem Syncope, unspecified syncope type R55 Active 509179155 ALLERGIES Unknown Allergies SOCIAL HISTORY No smoking Hx information available PLAN OF CARE VITAL SIGNS MEDICATIONS Unknown Medications RESULTS Name Result Date Reference Range A1C 2016-07-26 Hemoglobin A1c 5.6 4.8-5.6 LIPID PANEL 2016-07-26 Cholesterol, Total 134 100-199 Triglycerides 268 0-149 HDL Cholesterol 26 >39 VLDL Cholesterol Matteo 54 5-40 LDL Cholesterol Calc 54 0-99 CMP 2016-07-26 Glucose, Serum 93 65-99 BUN 13 6-20 Creatinine, Serum 0.98 0.76-1.27 eGFR If NonAfricn Am 98 >59 eGFR If Africn Am 113 >59 BUN/Creatinine Ratio 13 8-19 Sodium, Serum 141 134-144 Potassium, Serum 4.4 3.5-5.2 Chloride, Serum 101 97-108 Carbon Dioxide, Total 27 18-29 Calcium, Serum 9.4 8.7-10.2 Protein, Total, Serum 6.7 6.0-8.5 Albumin, Serum 4.8 3.5-5.5 Globulin, Total 1.9 1.5-4.5 A/G Ratio 2.5 1.1-2.5 Bilirubin, Total 0.5 0.0-1.2 Alkaline Phosphatase, S 58 39-117 AST (SGOT) 28 0-40 ALT (SGPT) 36 0-44 PROCEDURES Procedure Date Ordered Related Diagnosis Body Site GLYCATED HEMOGLOBIN TEST Jul 26, 2016 LIPID PANEL Jul 26, 2016 VENIPUNCT, ROUTINE* Jul 26, 2016 COMPREHEN METABOLIC PANEL Jul 26, 2016 IMMUNIZATIONS No Known Immunizations
--- OUTSIDE RECORDS SUMMARY | 2018-06-13 19:15 | XMS REPORT ---
Author Author JENA SMITH Organization eClinicalWorks Address Unknown Phone Unavailable Care Team Providers Care Clinical Documentation Consultant Name Role Phone JENA SMITH CP Unavailable [...] Date End Date Status Dosage Atorvastatin Calcium [facility] [address]-80 20 mg Orally Once a day TAKE ONE TABLET DAILY AT BEDTIME. AVOID GRAPEFRUIT JUICE Results No Known Results Summary Purpose eClinicalWorks Submission
--- OUTSIDE RECORDS SUMMARY | 2018-06-13 19:15 | XMS REPORT ---
Author Author NETO JOHN [facility] Address [address] [place] [address] Care Team Providers Care Airline Pilot Name Role Phone NETO JOHN Unavailable PROBLEMS Type Condition ICD9-CM Code YPG00-DB Code Onset Dates Condition Status SNOMED Code Problem Anxiety F41.9 Active 66481703 Problem Syncope, unspecified syncope type R55 Active 705857444 Problem Syncope and collapse R55 Active 235936388 Problem Resistant hypertension I10 Active 30323951 Problem Abdominal cramping R10.9 Active 446300635 Problem Lack of motivation Z91.89 Active 81903154 Problem Fatigue, unspecified type R53.83 Active 67088558 Problem Hyperlipidemia E78.5 Active 28680945 Problem Obesity (BMI 30-39.9) E66.9 Active 783380685 Problem Lumbago 724.2 Active 559043793 Problem Essential hypertension with goal blood pressure less than 130\/80 I10 Active 53874487 Problem Pure hypercholesterolemia E78.0 Active 435853834 Problem Solitary pulmonary nodule 793.11 Active 943749818 Problem Sexual dysfunction R37 Active 30153565 ALLERGIES No Information ENCOUNTERS Encounter Location Date Diagnosis [facility] [address] [id number] [id number] Jan, [facility] [address] [id number], [place] [address] Jan, Essential hypertension with goal blood pressure less than 130\/[address] [id number] [place] [id number] Dec, [facility] [address] [id number] [place] [id number] Dec, Essential hypertension with goal blood pressure less than 130\/80 I10 [facility] [address] [id number] [place] [address] Dec, [facility] [address] [id number] [place] [id number] Nov, Resistant hypertension I10 and Anxiety F41.[address] [facility] [address] [id number] [place] [id number] Nov, [facility] [address] [id number] [place] [address] Oct, [facility] [address] [id number] [place] [address] Oct, Essential hypertension with goal blood pressure less than 130\/80 I[address] [facility] [address] [id number] [place] [address] Oct, Essential hypertension with goal blood pressure less than 130\/80 I10 ; Obesity (BMI 30-39.9) E66.9 ; Abdominal cramping R10.9 and Anxiety F41.[address] [facility] [address] [id number], [place] [address] Jun, Essential hypertension with goal blood pressure less than 130\/[address] [facility] [address] [id number] [place] [address] May, Essential hypertension with goal blood pressure less than 130\/80 [address] [facility] [address] [id number] [place] [address] May, [facility] [address] [id number] [place] [id number] May, Essential hypertension with goal blood pressure less than 130\/80 I10 ; Pure hypercholesterolemia E78.0 and Acute allergic rhinitis, unspecified seasonality, unspecified trigger J30.[address] [facility] [address] [id number] [place] [address] February, [facility] [address] [id number], [place] [address] February, Essential hypertension with goal blood pressure less than 130\/80 I10 [facility] [address] [id number], [place] [address] Dec, [facility] [address] [id number], [place] [address] Nov, Pain in right testicle N50.811 and Essential hypertension with goal blood pressure less than 130\/80 I10 [facility] [address] [address] [id number], [place] [id number] Jul, [facility] [address] [id number], [place] [address] Jul, Essential hypertension with goal blood pressure less than 130\/80 I10 ; Fatigue, unspecified type R53.83 ; Obesity (BMI 30-39.9) E66.9 and Lack of motivation Z91.89 [facility] [address] [id number], [place] [address] Jul, [facility] [address] [id number], [place] [address] Jul, Hyperlipidemia E78.5 and Pure hypercholesterolemia E78.0 [facility] [address] [id number], [place] [id number] Jun, Hyperglycemia R73.9 ; Hyperlipidemia E78.5 and Pure hypercholesterolemia E78.0 [facility] [address] [id number], [place] [address] Jun, [facility] [address] [id number], [place] [address] Apr, Syncope, unspecified syncope type R55 ; Chest pain, unspecified type R07.9 and Essential hypertension I10 [facility] [address] [address] [id number], [place] [address] Mar, Essential hypertension with goal blood pressure less than 130\/80 I10 and Pure hypercholesterolemia E78.0 [facility] [employer] [address] [id number], [place] [address] February, Essential hypertension with goal blood pressure less than 130\/80 I10 ; Syncope and collapse R55 and Anxiety F41.9 [facility] [address] [id number], [place] [address] February, [facility] [address] [id number], [place] [address] Jan, Essential hypertension with goal blood pressure less than 130\/80 I10 ; Sexual dysfunction R37 and Anxiety F41.9 [facility] [address]00565100[place] [address] Dec, Hyperglycemia R73.9 and Hyperlipidemia E78.5 [facility] [address] [address] [id number], [place] [id number] Dec, Essential hypertension with goal blood pressure less than 130\/80 I10 and Pure hypercholesterolemia E78.0 [facility] [address] [place] [address] AVE [id number], [place] 2020[address]697 Dec, Essential hypertension with goal blood pressure less than 130\/80 I10 and Pure hypercholesterolemia E78.0 [facility] [address]00565100[place] [address] February, Generalized anxiety disorder 300.02 ; Unspecified episodic mood disorder 296.90 ; No condition on Roland II V71.09 ; Hypertension 401.9 and Bulging discs 722.2 [facility] [address] [address] [id number], [place] [address] Jan, [facility] [address] [id number], [place] [id number] Jan, [facility] [address]00565100[place] [address] Jan, [facility] [id number] [place] [address] Jan, [facility] [address]65100[place] [address] Dec, [facility] [address] [id number] [place] [address] Dec, [facility] [place] [facility] [address] [id number] [place] [address] Dec, [facility] [place] [facility] [address] [id number] [place] [address] Dec, [facility] [place] [facility] [address] [id number] [place] [address] Dec, [facility] [place] [facility] [address] [id number] [place] [address] Dec, [facility] [place] [facility] [address] [id number] [place] [address] Nov, [facility] [place] [facility] [address] [id number] [place] [address] Nov, [facility] [place] [facility] [address] [id number] [place] [address] Nov, [facility] [place] [facility] [address] [id number] [place] [address] Nov, [facility] [place] [facility] [address] [id number] [place] [address] Oct, [facility] [place] [facility] [address] [id number] [place] [address] Oct, [facility] [place] [facility] [address] [id number] [place] [address] Oct, [facility] [place] [facility] [address] [id number] [place] [address] Oct, [facility] [place] [facility] [address] [id number] [place] [address] Oct, [facility] [place] [facility] [address] [id number] [place] [address] Oct, [facility] [place] [facility] [address] [id number] [place] [address] Oct, [facility] [address] [facility] [id number] [place] [address] Jul, [facility] [address] [facility] [id number] [place] [address] May, IMMUNIZATIONS No Known Immunizations SOCIAL HISTORY Never Assessed REASON FOR VISIT make EKG order current PLAN OF CARE VITAL SIGNS MEDICATIONS Unknown Medications RESULTS No Results PROCEDURES Procedure Date Ordered Result Body Site ELECTROCARDIOGRAM, TRACING Nov 23, 2017 INSTRUCTIONS MEDICATIONS ADMINISTERED No Known Medications MEDICAL (GENERAL) HISTORY Type Description Date Medical History Hypertension Medical History Hyperlipidemia Medical History chronic low back pain Medical History obesity Medical History bilateral varicocele's and right hydrocele Medical History CVD risk 6.5% 10 yr, no statin indicated at this time Hospitalization History High BP 2014 Hospitalization History Via [facility] ER. Evaluated and sent home. 02/2016
--- OUTSIDE RECORDS SUMMARY | 2018-06-13 19:15 | XMS REPORT ---
Author Author LUIS JENA [facility] Address [address] [place] [address] Care Team Providers Care Epitaxial Reactor Technician Name Role Phone JENA SMITH Unavailable PROBLEMS Type Condition ICD9-CM Code EVZ36-RR Code Onset Dates Condition Status SNOMED Code Problem Anxiety F41.9 Active 19279638 Problem Syncope, unspecified syncope type R55 Active 891992880 Problem Syncope and collapse R55 Active 346890597 Problem Resistant hypertension I10 Active 18753746 Problem Abdominal cramping R10.9 Active 609694972 Problem Lack of motivation Z91.89 Active 26273756 Problem Fatigue, unspecified type R53.83 Active 86456924 Problem Hyperlipidemia E78.5 Active 50957915 Problem Obesity (BMI 30-39.9) E66.9 Active 859383643 Problem Lumbago 724.2 Active 568759618 Problem Essential hypertension with goal blood pressure less than 130\/80 I10 Active 44432308 Problem Pure hypercholesterolemia E78.0 Active 189574352 Problem Solitary pulmonary nodule 793.11 Active 498277828 Problem Sexual dysfunction R37 Active 51034557 ALLERGIES No Information ENCOUNTERS Encounter Location Date Diagnosis [facility] [address] [id number] [place] [id number] Jan, [employer] [employer] [address] [id number] [place] [id number] Jan, Essential hypertension with goal blood pressure less than 130\/[address] [id number] [place] [id number] Dec, [facility] [employer] [id number] [place] [address] Dec, Essential hypertension with goal blood pressure less than 130\/[address] [id number] [place] [address] Dec, [facility] [address] [id number] [place] [address] Nov, Resistant hypertension I10 and Anxiety F41.[address] [facility] [address] [id number] [place] [address] Nov, [facility] [address] [id number] [place] [address] Oct, [facility] [address] [id number] [place] [address] Oct, Essential hypertension with goal blood pressure less than 130\/80 [address] [facility] [address] [id number] [place] [id number] Oct, Essential hypertension with goal blood pressure less than 130\/80 I10 ; Obesity (BMI 30-39.9) E66.9 ; Abdominal cramping R10.9 and Anxiety F41.[address] [facility] [address] [id number], [place] [address] Jun, Essential hypertension with goal blood pressure less than 130\/[address] [facility] [address] [id number], [place] [address]8545 May, Essential hypertension with goal blood pressure less than 130\/80 [address] [facility] [address] [id number] [place] [address] May, [facility] [address] [id number] [place] [id number] May, Essential hypertension with goal blood pressure less than 130\/80 I10 ; Pure hypercholesterolemia E78.0 and Acute allergic rhinitis, unspecified seasonality, unspecified trigger J30.[address] [facility] [address] [id number] [place] [id number] February, [facility] [address] [id number], [place] [address]276 February, Essential hypertension with goal blood pressure less than 130\/80 I10 [facility] [address] [id number], [place] [address] Dec, [facility] [address] [id number], [place] [address] Nov, Pain in right testicle N50.811 and Essential hypertension with goal blood pressure less than 130\/80 I10 [facility] [address] [id number], [place] [address] Jul, [facility] [address] [id number], [place] [address] Jul, Essential hypertension with goal blood pressure less than 130\/80 I10 ; Fatigue, unspecified type R53.83 ; Obesity (BMI 30-39.9) E66.9 and Lack of motivation Z91.89 [facility] [id number], [place] [address] Jul, [facility] [address] [email or web address] [id number], [place] [address] Jul, Hyperlipidemia E78.5 and Pure hypercholesterolemia E78.[address] [facility] [address] [place] [address] AVE [id number], [place] [address] Jun, Hyperglycemia R73.9 ; Hyperlipidemia E78.5 and Pure hypercholesterolemia E78.0 [facility] [email or web address] [place] [address] AVE [id number], [place] [address] Jun, [facility] [email or web address] [id number], [place] [address] Apr, Syncope, unspecified syncope type R55 ; Chest pain, unspecified type R07.9 and Essential hypertension I10 [facility] [address] [address] [id number], [place] [address] Mar, Essential hypertension with goal blood pressure less than 130\/80 I10 and Pure hypercholesterolemia E78.0 [facility] [address] [id number], [place] [id number] February, Essential hypertension with goal blood pressure less than 130\/80 I10 ; Syncope and collapse R55 and Anxiety F41.9 [facility] [address] [id number], [place] [address] February, [facility] [address] [id number], [place] [address] Jan, Essential hypertension with goal blood pressure less than 130\/80 I10 ; Sexual dysfunction R37 and Anxiety F41.9 [facility] [address]005[address]100[place] [address] Dec, Hyperglycemia R73.9 and Hyperlipidemia E78.5 [facility] [address] [id number], [place] 18[address]172 Dec, Essential hypertension with goal blood pressure less than 130\/80 I10 and Pure hypercholesterolemia E78.0 [facility] [address] [id number], [place] [address] Dec, Essential hypertension with goal blood pressure less than 130\/80 I10 and Pure hypercholesterolemia E78.0 [facility] [address]100[place] [address] February, Generalized anxiety disorder 300.02 ; Unspecified episodic mood disorder 296.90 ; No condition on Scott II V71.09 ; Hypertension 401.9 and Bulging discs 722.2 [facility] [id number], [place] [address]293 Jan, [facility] [address] [id number], [place] [address] Jan, [facility] [address]100[place] [address] Jan, [facility] [id number] [place] [address]- [address] Jan, [facility] [address]65100[place] [address]- [address] Dec, [facility] [id number] [place] [address] [place] [address] Dec, [facility] [place] [facility] [address] [id number] [place] [address]- 7091 Dec, [facility] [place] [facility] [address] [id number] [place] [address]- 1606 Dec, [facility] [place] [facility] [address] [id number] [place] [address]- 5310 Dec, [facility] [place] [facility] [address] [id number] [place] [address]- 1267 Dec, [facility] [place] [facility] [address] [id number] [place] [address]- 9868 Nov, [facility] [place] [facility] [address] [id number] [place] [address]- 3433 Nov, [facility] [place] [facility] [address] [id number] [place] [address]- 7792 Nov, [facility] [place] [facility] [address] [id number] [place] [address]- 4736 Nov, [facility] [place] [facility] [address] [id number] [place] [address]- 0493 Oct, [facility] [place] [facility] [address] [id number] [place] [address]- 4750 Oct, [facility] [place] [facility] [address] [id number] [place] [address]- 7778 Oct, [facility] [place] [facility] [address] [id number] [place] [address]- 0265 Oct, [facility] [place] [facility] [address] [id number] [place] [address]- 4066 Oct, [facility] [place] [facility] [address] [id number] [place] [address]- [address]32 Oct, [facility] [place] [facility] [address] [id number] [place] [address]- 4501 Oct, [facility] [address] [facility] [id number] [place] [address] Jul, [facility] [address] [facility] [id number] [place] May, IMMUNIZATIONS No Known Immunizations SOCIAL HISTORY Never Assessed REASON FOR VISIT results PLAN OF CARE VITAL SIGNS MEDICATIONS Unknown [...] History High BP 2014 Hospitalization History Via [facility] ER. Evaluated and sent home. 02/2016
--- OUTSIDE RECORDS SUMMARY | 2018-06-13 19:15 | XMS REPORT ---
Author Author JENA SMITH Organization [employer] Address Unknown Phone Unavailable Care Team Providers Care Trauma Surgeon Name Role Phone JENA SMITH CP Unavailable Allergies No Known Allergies Problems Problem Type Condition Code Onset Dates Condition Status Problem Pure hypercholesterolemia E78.0 Active Problem Anxiety F41.9 Active Problem Essential hypertension with goal blood pressure less than 130\/80 I10 Active Problem Lumbago 724.2 Active Problem Solitary pulmonary nodule 793.11 Active Problem Obesity (BMI 30-39.9) E66.9 Active Problem Fatigue, unspecified type R53.83 Active Problem Hyperlipidemia E78.5 Active Problem Syncope and collapse R55 Active Problem Sexual dysfunction R37 Active Problem Lack of motivation Z91.89 Active Problem Syncope, unspecified syncope type R55 Active Medications No Known Medications Results No Known Results Summary Purpose [employer] Submission
--- OUTSIDE RECORDS SUMMARY | 2018-06-13 19:15 | XMS REPORT ---
Author Author LUIS JENA [facility] [place] [place] Address [address] [place] [address] Care Team Providers Care Smoking Pipe Maker Name Role Phone JENA SMITH Unavailable PROBLEMS Type Condition ICD9-CM Code [id number] Code Onset Dates Condition Status SNOMED Code Problem Essential hypertension with goal blood pressure less than 130\/80 I10 Active 27216355 Problem Anxiety F41.9 Active 26070002 Problem Sexual dysfunction R37 Active 83827323 Problem Solitary pulmonary nodule 793.11 Active 101878586 Problem Lumbago 724.2 Active 718002081 Problem Pure hypercholesterolemia E78.0 Active 025095982 Problem Hyperlipidemia E78.5 Active 56954705 Problem Obesity (BMI 30-39.9) E66.9 Active 320349854 Problem Syncope, unspecified syncope type R55 Active 666550739 Problem Syncope and collapse R55 Active 611269452 Problem Fatigue, unspecified type R53.83 Active 78562223 Problem Lack of motivation Z91.89 Active 85635793 ALLERGIES Substance Reaction Event Type Date Status Lisinopril hives Drug Allergy Nov, Active Hydrochlorothiazide dizziness Drug Allergy Nov, Active SOCIAL HISTORY Never Assessed PLAN OF CARE Activity Details Follow Up 3 Months Reason:BP VITAL SIGNS Height 71 in 2016-12-27 Weight 278.0 lbs 2016-12-27 Temperature 98.3 degrees Fahrenheit 2016-12-27 Heart Rate 84 bpm 2016-12-27 Respiratory Rate 16 2016-12-27 BMI 38.77 kg/m2 2016-12-27 Blood pressure systolic 140 mmHg 2016-12-27 Blood pressure diastolic 80 mmHg 2016-12-27 MEDICATIONS Medication Instructions Dosage Frequency Start Date End Date Duration Status Diovan 160 MG Orally Once a day at noon 1 tablet 0 days Active Fish Oil 1000 MG Orally twice a day 1 capsule 12h Active Aspir-81 81 MG Orally Once a day 1 tablet 24h Active Metoprolol Succinate ER 50 mg Orally Once a day 1 tablet 24h 0 days Active Amlodipine Besylate 10 mg Orally daily 1 tablet Once a day Orally 24h 0 days Active RESULTS Name Result Date Reference Range TSH W/ FREE T4 2016-12-27 TSH 2.420 0.450-4.500 T4,Free(Direct) 0.97 0.82-1.77 CBC 2016-12-27 WBC 8.7 3.4-10.8 RBC 5.08 4.14-5.80 Hemoglobin 15.0 12.6-17.7 Hematocrit 43.8 37.5-51.0 MCV 86 79-97 MCH 29.5 26.6-33.0 MCHC 34.2 31.5-35.7 RDW 13.9 12.3-15.4 Platelets 208 150-379 Neutrophils 60 Lymphs 30 Monocytes 5 Eos 3 Basos 1 Immature Cells Neutrophils (Absolute) 5.3 1.4-7.0 Lymphs (Absolute) 2.6 0.7-3.1 Monocytes(Absolute) 0.5 0.1-0.9 Eos (Absolute) 0.3 0.0-0.4 Baso (Absolute) 0.0 0.0-0.2 Immature Granulocytes 1 Immature Grans (Abs) 0.1 0.0-0.1 NR Hematology Comments: LIPID PANEL 2016-12-27 Cholesterol, Total 190 100-199 Triglycerides 473 0-149 HDL Cholesterol 27 >39 VLDL Cholesterol Matteo 5-40 LDL Cholesterol Calc 0-99 Comment: CMP 2016-12-27 Glucose, Serum 89 65-99 BUN 13 6-20 Creatinine, Serum 1.00 0.76-1.27 eGFR If NonAfricn Am 95 >59 eGFR If Africn Am 110 >59 BUN/Creatinine Ratio 13 8-19 Sodium, Serum 142 134-144 Potassium, Serum 4.0 3.5-5.2 Chloride, Serum 101 96-106 Carbon Dioxide, Total 24 18-29 Calcium, Serum 9.9 8.7-10.2 Protein, Total, Serum 7.5 6.0-8.5 Albumin, Serum 5.4 3.5-5.5 Globulin, Total 2.1 1.5-4.5 A/G Ratio 2.6 1.1-2.5 Bilirubin, Total 0.5 0.0-1.2 Alkaline Phosphatase, S 64 39-117 AST (SGOT) 49 0-40 ALT (SGPT) 56 0-44 Ultrasound : Testicular 2016-12-30 PROCEDURES Procedure Date Ordered Result Body Site LIPID PANEL Dec 27, 2016 ASSAY THYROID STIM HORMONE Dec 27, 2016 B12, VITAMIN (UP TO 1000 MCG) Dec 27, 2016 VENIPUNCT, ROUTINE* Dec 27, 2016 THER/PROPH/DIAG INJ, SC/IM Dec 27, 2016 COMPREHEN METABOLIC PANEL Dec 27, 2016 ASSAY OF FREE THYROXINE Dec 27, 2016 COMPLETE CBC W/AUTO DIFF WBC Dec 27, 2016 IMMUNIZATIONS Vaccine Route Administration Date Status B12, VITAMIN (UP TO 1000 MCG) IM Intramuscular Dec 27, 2016 Administered MEDICAL (GENERAL) HISTORY Type Description Date Medical History Hypertension Medical History Hyperlipidemia Medical History chronic low back pain Medical History obesity Medical History bilateral varicocele's and right hydrocele Hospitalization History High BP 2014 Hospitalization History Via [facility] ER. Evaluated and sent home. 02/2016
--- OUTSIDE RECORDS SUMMARY | 2018-06-13 19:16 | XMS REPORT | Continuity of Care Document ---
Author Author [facility] Address Unknown Phone Unavailable Allergies Active Description Code Type Severity Reaction Onset Reported/Identified Relationship to Patient Clinical Status Yes No Known Drug Allergies [id number] Drug Allergy Unknown N/A 11/10/2014 Medications There is no data. Problems Date Dx Coded Attending Type Code Diagnosis Diagnosed By 06/26/2012 ESTELITA RAMIREZ APRN 724.2 lower back pain 06/26/2012 ESTELITA RAMIREZ APRN N 796.2 ELEVATED BLOOD PRESSURE READING WITHOUT DIAGNOSIS OF HYPERTENSION 06/26/2012 NJ PHELAN DO 724.2 lower back pain 06/26/2012 MARIA LUZ PHELAN DOA K 796.2 ELEVATED BLOOD PRESSURE READING WITHOUT DIAGNOSIS OF HYPERTENSION 06/26/2012 IDANIA KRUGER MD 724.2 lower back pain 06/26/2012 IDANIA KRUGER MD 796.2 ELEVATED BLOOD PRESSURE READING WITHOUT DIAGNOSIS OF HYPERTENSION 06/26/2012 NJ PHELAN DO K 724.2 lower back pain 06/26/2012 MARIA LUZ PHELAN DOA K 796.2 ELEVATED BLOOD PRESSURE READING WITHOUT DIAGNOSIS OF HYPERTENSION 06/26/2012 MARIA LUZ PHELAN DOA K 724.2 lower back pain 06/26/2012 MARIA LUZ PHELAN DOA K 796.2 ELEVATED BLOOD PRESSURE READING WITHOUT DIAGNOSIS OF HYPERTENSION 11/10/2014 ESTELITA RAMIREZ APRN N 300.00 ANXIETY STATE UNSPECIFIED 11/10/2014 ESTELITA RAMIREZ APRN N 401.1 BENIGN ESSENTIAL HYPERTENSION 11/10/2014 ESTELITA RAMIREZ APRN N 786.50 UNSPECIFIED CHEST PAIN 11/10/2014 MARIA LUZ PHELAN DOA K 300.00 ANXIETY STATE UNSPECIFIED 11/10/2014 ZHANE BOCANEGRA NJ K 401.1 BENIGN ESSENTIAL HYPERTENSION 11/10/2014 ZHANE BOCANEGRA NJ K 786.50 UNSPECIFIED CHEST PAIN 11/10/2014 IDANIA KRUGER MD 300.00 ANXIETY STATE UNSPECIFIED 11/10/2014 IDANIA KRUGER MD 401.1 BENIGN ESSENTIAL HYPERTENSION 11/10/2014 IDANIA KRUGER MD 786.50 UNSPECIFIED CHEST PAIN 11/10/2014 PHELAN DO, NJ K 300.00 ANXIETY STATE UNSPECIFIED 11/10/2014 PHELAN DO, NJ K 401.1 BENIGN ESSENTIAL HYPERTENSION 11/10/2014 PHELAN DO, NJ K 786.50 UNSPECIFIED CHEST PAIN 11/10/2014 PHELAN DO, NJ K 300.00 ANXIETY STATE UNSPECIFIED 11/10/2014 PHELAN DO, NJ K 401.1 BENIGN ESSENTIAL HYPERTENSION 11/10/2014 PHELAN DO, NJ K 786.50 UNSPECIFIED CHEST PAIN 11/11/2014 SLICK RIVAS, IDANIA Krishnamurthy Ot 272.4 HYPERLIPIDEMIA NEC/NOS 11/11/2014 IDANIA KRUGER MD Ot 277.7 DYSMETABOLIC SYNDROME X 11/11/2014 IDANIA KRUGER MD Ot 278.00 OBESITY, NOS 11/11/2014 IDANIA KRUGER MD Ot 300.00 ANXIETY STATE NOS 11/11/2014 SLICK RIVAS, IDANIA Krishnamurthy Ot 305.01 ALCOHOL ABUSE-CONTINUOUS 11/11/2014 SLICK RIVAS, IDANIA Krishnamurthy Ot 311 DEPRESSIVE DISORDER NEC 11/11/2014 IDANIA KRUGER MD Ot 401.9 HYPERTENSION NOS 11/11/2014 SLICK RIVAS, IDANIA Krishnamurthy Ot 785.1 PALPITATIONS 11/11/2014 IDANIA KRUGER MD Ot 786.59 CHEST PAIN NEC 11/11/2014 IDANIA KRUGER MD Ot V15.81 HX OF PAST NONCOMPLIANCE 11/11/2014 IDANIA KRUGER MD Ot V85.34 BODY MASS INDEX 34.0-34.9, ADULT 11/19/2014 PHELAN DO, NJ K 401.9 HYPERTENSION, UNSPECIFIED ESSENTIAL 11/19/2014 PHELAN DO, NJ K 793.11 SOLITARY PULMONARY NODULE 11/19/2014 IDANIA KRUGER MD 401.9 HYPERTENSION, UNSPECIFIED ESSENTIAL 11/19/2014 IDANAI KRUGER MD 793.11 SOLITARY PULMONARY NODULE 11/19/2014 PHELAN DO, NJ K 401.9 HYPERTENSION, UNSPECIFIED ESSENTIAL 11/19/2014 PHELAN DO, NJ K 793.11 SOLITARY PULMONARY NODULE 11/19/2014 PHELAN DO, NJ K 401.9 HYPERTENSION, UNSPECIFIED ESSENTIAL 11/19/2014 PHELAN DO, NJ K 793.11 SOLITARY PULMONARY NODULE 11/24/2014 JENA SMITH QA INTERN Ot 793.11 01/19/2015 ALFIE BUTTERFEILD MD Ot 278.00 01/19/2015 ALFIE BUTTERFIELD MD Ot 300.00 01/19/2015 ALFIE BUTTERFIELD MD Ot 401.9 01/19/2015 ALFIE BUTTERFIELD MD Ot 786.50 01/19/2015 JENA SMITH QA INTERN Ot 793.11 01/20/2015 PHELAN DO, NJ K 278.00 OBESITY 01/20/2015 PHELAN DO, NJ K V65.3 DIETARY SURVEILLANCE AND COUNSELING 01/20/2015 PHELAN DO, NJ K V65.42 COUNSELING ON SUBSTANCE USE AND ABUSE 01/20/2015 PHELAN DO, NJ K 278.00 OBESITY 01/20/2015 PHELAN DO, NJ K V65.3 DIETARY SURVEILLANCE AND COUNSELING 01/20/2015 PHELAN DO, NJ K V65.42 COUNSELING ON SUBSTANCE USE AND ABUSE 03/04/2016 GUS ALICEA MD Ot R00.2 PALPITATIONS 03/04/2016 GUS ALICEA MD Ot R55 SYNCOPE AND COLLAPSE 03/06/2016 GUS ALICEA MD Ot R00.2 PALPITATIONS 03/06/2016 GUS ALICEA MD Ot R55 SYNCOPE AND COLLAPSE 04/30/2016 GUS ALICEA MD Ot R00.2 PALPITATIONS 04/30/2016 GUS ALICEA MD Ot R55 SYNCOPE AND COLLAPSE 12/30/2016 ALFIE BUTTERFIELD MD Ot 278.00 OBESITY, NOS 12/30/2016 ALFIE BUTTERFIELD MD Ot 300.00 ANXIETY STATE NOS 12/30/2016 ALFIE BUTTERFIELD MD Ot 401.9 HYPERTENSION NOS 12/30/2016 ALFIE BUTTERFIELD MD Ot 786.50 CHEST PAIN NOS 12/30/2016 JENA SMITH QA INTERN Ot 793.11 SOLITARY PULMONARY NODULE 12/30/2016 ALFIE BUTTERFIELD MD Ot 278.00 OBESITY, NOS 12/30/2016 ALFIE BUTTERFIELD MD Ot 300.00 ANXIETY STATE NOS 12/30/2016 ALFIE BUTTERFIELD MD Ot 401.9 HYPERTENSION NOS 12/30/2016 ALFIE BUTTERFIELD MD Ot 786.50 CHEST PAIN NOS 12/30/2016 JENA SMITH QA INTERN Ot 793.11 SOLITARY PULMONARY NODULE 01/01/2017 JENA SMITH QA INTERN Ot I86.1 SCROTAL VARICES 01/01/2017 JENA SMITH QA INTERN Ot N43.3 HYDROCELE, UNSPECIFIED 01/25/2017 JENA SMITH QA INTERN Ot I86.1 SCROTAL VARICES 01/25/2017 JENA SMITH QA INTERN Ot N43.3 HYDROCELE, UNSPECIFIED 01/25/2017 JENA SMITH QA INTERN Ot I86.1 SCROTAL VARICES 01/25/2017 JENA SMITH QA INTERN Ot N43.3 HYDROCELE, UNSPECIFIED Procedures Code Description [place] [address] ROUTINE VENIPUNCTURE 11/10/2014 07630 EKG, TRACING (IN-HOUSE) 11/10/2014 53427 CBC 11/10/2014 1064720 GFR CALC (RESULT ONLY) 11/10/2014 47075 CMP 11/10/2014 65454 LIPID PANEL 11/10/2014 97269 TSH 11/10/2014 CKISOENZ CK ISOENZYMES 11/11/[address] CHEST W/DYE 11/19/2014 2000F BLOOD PRESSURE CHECK 02/06/2015 12163 ROUTINE VENIPUNCTURE 02/06/2015 [id number] GFR CALC (RESULT ONLY) 02/06/2015 92899 CMP 02/06/2015 64560 LIPID PANEL 02/06/2015 Results Test Result Range MAGNESIUM SERUM - 11/23/17 10:33 MAGNESIUM 2.1 mg/dL 1.5-2.5 Encounters ACCT No. Visit Date/Time Discharge Status Pt. Type Provider Facility Loc./Unit Complaint [id number] 02/06/2015 11:06:00 02/06/2015 23:59:59 CLS Outpatient NJ PHELAN DO [id number] 01/20/2015 10:18:00 01/20/2015 23:59:59 CLS Outpatient NJ PHELAN DO [id number] 12/06/2014 11:36:00 12/06/2014 23:59:59 CLS Outpatient SLICK RIVAS, IDANIA [id number] 11/19/2014 10:27:00 11/19/2014 23:59:59 CLS Outpatient NJ PHELAN DO [id number] 11/10/2014 09:53:00 11/10/2014 23:59:59 CLS Outpatient ESTELITA RAMIREZ APRN [id number] 12/30/2016 14:19:00 12/30/2016 23:59:59 CLS Outpatient JENA SMITH [facility] RAD PAIN IN RIGHT TESTICLE [id number] 03/04/2016 14:52:00 03/04/2016 18:00:00 DIS Emergency NIXON RIVAS, GUS Reyes [facility] ER SYNCOPAL EPISODE [id number] 12/03/2014 09:34:00 12/03/2014 23:59:59 CLS Outpatient SCOUT RIVAS, ALFIE Valdes [facility] CARD CP,HTN,ANXIETY [id number] 11/21/2014 11:43:00 11/21/2014 23:59:59 CLS Outpatient JENA SMITH [facility] RAD HTN SOLITARY PULMONARY NODULE [id number] 11/10/2014 13:55:00 11/11/2014 12:42:00 DIS Inpatient SLICK RIVAS, IDANIA Krishnamurthy [facility] CSD CHEST PAIN,HTN [id number] 12/06/2014 15:46:28 ACT Document Registration [id number] 06/05/2018 09:20:00 06/05/2018 23:59:59 [id number] 11/23/2017 09:20:00 Document Registration
[2018-06-13] MEDS ORDERED: GEMF600T4 (19:18)
[2018-06-13 19:25] LABS: BILIRUBIN,URINE NEGATIVE (NEGATIVE); CLARITY,URINE CLEAR; COLOR,URINE YELLOW; GLUCOSE, URINE (UA) NEGATIVE (NEGATIVE); KETONES,URINE NEGATIVE (NEGATIVE); LEUKOCYTE ESTERASE ,URINE NEGATIVE (NEGATIVE); NITRITE,URINE NEGATIVE (NEGATIVE); PH,URINE 6 (5-9); PROTEIN,URINE 3+ (NEGATIVE); UROBILINOGEN,URINE NORMAL (NORMAL)
--- NOTE | 2018-06-13 19:28 | ED Abdominal Pain ---
General Chief Complaint: Abdominal/GI Problems Stated Complaint: R SIDE ABD AND BACK PAIN Nursing Triage Note: MID/RIGHT ABDOMINAL PAIN RADIATING TO RIGHT FLANK Sepsis Screen: No Definite Risk Source of Information: Patient Exam Limitations: No Limitations History of Present Illness Date Seen by Provider: Jun 13, 2018 Time Seen by Provider: 19:14 Initial Comments PT ARRIVES VIA POV FROM HOME C/O INTERMITTENT RLQ/RIGHT SUPRAPUBIC PAIN X 3 DAYS , NOW RADIATING/MOVING TO RIGHT FLANK TODAY AROUND 1400 HAD NAUSEA AND VOMITED A SMALL AMOUNT LAST NIGHT. NO NAUSEA NOW WHEN HE LAYS ON STOMACH, PAIN RADIATES TO RIGHT FLANK, OTHERWISE WHEN STANDING OR MOVING OR ON CAR RIDE HERE, PAIN WAS IN RLQ NO FEVER NO URINARY SYMPTOMS NO HISTORY OF SIMILAR HAS NOT TAKEN ANYTHING FOR PAIN [facility] Allergies and Home Medications Allergies Coded Allergies: No Known Drug Allergies (Unverified , 11/10/14) Home Medications Amlodipine Besylate 10 Mg Tablet, 10 MG PO DAILY In the morning Prescribed by: BRET ANDRADE on 11/11/14 110 Aspirin 81 Mg Tablet.dr, 81 MG PO DAILY Prescribed by: BRET ANDRADE on 11/11/14 110 Hydrocodone Bit/Acetaminophen 1 Ea Tablet, 1-2 EACH PO Q4H Prescribed by: ARIC PRINGLE on 06/13/182006 Metoprolol Succinate 50 Mg Tab.sr.24h, 50 MG PO HS Prescribed by: BRET ANDRADE on 11/11/14 110 Valsartan 160 Mg Tablet, 160 MG PO DAILY, (Reported) Patient Home Medication List Home Medication List Reviewed: Yes Review of Systems Constitutional: no symptoms reported Respiratory: No Symptoms Reported Cardiovascular: No Symptoms Reported Gastrointestinal: See HPI, Abdominal Pain, Nausea, Vomiting Genitourinary: No Symptoms Reported Musculoskeletal: see HPI, back pain Skin: no symptoms reported Psychiatric/Neurological: No Symptoms Reported Endocrine: No Symptoms Reported Hematologic/Lymphatic: No Symptoms Reported Past Gdkkxty-Mzbjru-Ummgow Hx Patient Social History Alcohol Use: Regular Use (DRINKS BEER DAILY) Recreational Drug Use: Yes (THC, + IV METH AND COCAINE " A TEEN" ) Drug of Choice: THC, + IV METH AND COCAINE " A TEEN" Smoking Status: Former Smoker Type Used: Cigarettes 2nd Hand Smoke Exposure: No Recent Foreign Travel: No Contact w/Someone Who Travel: No Recent Infectious Disease Expo: No Recent Hopitalizations: No Immunizations Up To Date Tetanus Booster (TDap): Unknown Seasonal Allergies Seasonal Allergies: No Past Medical History Surgeries: No Respiratory: Yes ("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" RLL LUNG CALCIFIED NODULE-STABLE OF 06/13/18) Cardiac: Yes High Cholesterol, Hypertension Neurological: Yes Headaches /Migraines Reproductive Disorders: No Genitourinary: No Gastrointestinal: No Musculoskeletal: Yes Chronic Back Pain Endocrine: No HEENT: No Hearing Impairment: Denies Cancer: No Psychosocial: Yes Anxiety, Depression Integumentary: No Blood Disorders: No Adverse Reaction/Blood Tranf: No Family Medical History Diabetes mellitus 19 FATHER, , Age:58 G8 SISTER, , Age:42 G8 BROTHER FHx: mental illness G8 BROTHER Myocardial infarction 19 FATHER, , Age:58 G8 SISTER, , Age:42 Physical Exam Vital Signs Vital Signs - First Documented 06/13/18 19:10 Temp 97.2 Pulse 78 Resp 18 B/P (MAP) 188/106 (133) Pulse Ox 99 O2 Delivery Room Air Capillary Refill : Less Than 3 Seconds Height/Weight/BMI Height: 5'11.00" Weight: 260lbs. 0oz. 117.198740ih; 35.00 BMI Method:Stated General Appearance: WD/WN, no apparent distress, other (WALKS UPRIGHT AND MOVES WITHOUT DIFFICULTY. CALM, DOES NOT APPEAR TO BE IN ANY DISCOMFORT AT THIS TIME) Respiratory: normal breath sounds, no respiratory distress, no accessory muscle use Cardiovascular: regular rate, rhythm, no murmur Gastrointestinal: normal bowel sounds, soft, no organomegaly, no pulsatile mass ; No distended, No guarding, No rebound; tenderness (RLQ AND RIGHT FLANK WITH MILD TENDERNESS); No hernia, No mass Extremities: normal range of motion, non-tender, no pedal edema, no calf tenderness, normal capillary refill Back: no vertebral tenderness, CVA tenderness (R) Neurologic/Psychiatric: taker off braker machine II-XII nml as tested, no motor/sensory deficits, alert, normal mood/affect, oriented x 3 Skin: normal color, warm/dry; No rash Progress/Results/Core Measures Results/Orders Lab Results Laboratory Tests Test 06/13/18 19:13 06/13/18 19:25 Range/Units Urine Color YELLOW Urine Clarity CLEAR Urine pH 6 5-9 Urine Specific Sanborn 1.020 1.016-1.022 Urine Protein 3+ H NEGATIVE Urine Glucose (UA) NEGATIVE NEGATIVE Urine Ketones NEGATIVE NEGATIVE Urine Nitrite NEGATIVE NEGATIVE Urine Bilirubin NEGATIVE NEGATIVE Urine Urobilinogen NORMAL NORMAL MG/DL Urine Leukocyte Esterase NEGATIVE NEGATIVE Urine RBC (Auto) 4+ H NEGATIVE Urine RBC 50-100 H /HPF Urine WBC NONE /HPF Urine Crystals NONE /LPF Urine Bacteria NONE /HPF Urine Casts NONE /LPF Urine Mucus NEGATIVE /LPF Urine Culture Indicated NO White Blood Count 8.6 4.3-11.0 10^3/uL Red Blood Count 4.88 4.35-5.85 10^6/uL Hemoglobin 14.3 13.3-17.7 G/DL Hematocrit 41 40-54 % Mean Corpuscular Volume 84 80-99 FL Mean Corpuscular Hemoglobin 29 25-34 PG Mean Corpuscular Hemoglobin Concent 35 32-36 G/DL Red Cell Distribution Width 12.8 10.0-14.5 % Platelet Count 272 130-400 10^3/uL Mean Platelet Volume 9.1 7.4-10.4 FL Neutrophils (%) (Auto) 68 42-75 % Lymphocytes (%) (Auto) 22 12-44 % Monocytes (%) (Auto) 7 0-12 % Eosinophils (%) (Auto) 2 0-10 % Basophils (%) (Auto) 0 0-10 % Neutrophils # (Auto) 5.9 1.8-7.8 X 10^3 Lymphocytes # (Auto) 1.9 1.0-4.0 X 10^3 Monocytes # (Auto) 0.6 0.0-1.0 X 10^3 Eosinophils # (Auto) 0.2 0.0-0.3 10^3/uL Basophils # (Auto) 0.0 0.0-0.1 10^3/uL Sodium Level 138 135-145 MMOL/L Potassium Level 3.6 3.6-5.0 MMOL/L Chloride Level 103 98-107 MMOL/L Carbon Dioxide Level 24 21-32 MMOL/L Anion Gap 11 5-14 MMOL/L Blood Urea Nitrogen 17 7-18 MG/DL Creatinine 1.29 0.60-1.30 MG/DL Estimat Glomerular Filtration Rate > 60 BUN/Creatinine Ratio 13 Glucose Level 111 H 70-105 MG/DL Calcium Level 10.2 H 8.5-10.1 MG/DL Corrected Calcium 8.5-10.1 MG/DL Total Bilirubin 0.5 0.1-1.0 MG/DL Aspartate Amino Transf (AST/SGOT) 24 5-34 U/L Alanine Aminotransferase (ALT/SGPT) 31 0-55 U/L Alkaline Phosphatase 50 40-136 U/L Total Protein 7.5 6.4-8.2 GM/DL Albumin 5.2 H 3.2-4.5 GM/DL Amylase Level 76 25-125 U/L Lipase 16 8-78 U/L My Orders Orders - ARIC PRINGLE DO Ct Abd/Pelvis Wo(Kidney Stone) (06/13/18 19:13) Amylase (06/13/18:) Cbc With Automated Diff (06/13/18:) Comprehensive Metabolic Panel (06/13/18:) Lipase (06/13/18:) Ua Culture If Indicated (06/13/18:) Acute Abd Series (06/13/18:) Saline Lock/Iv-Start (06/13/18:) Lactated Ringers (Lr 1000 Ml Iv Solution (06/13/18:13) Ketorolac Injection (Toradol Injection) (06/13/18 20:00) Ondansetron Injection (Zofran Injectio (06/13/18 20:00) Medications Given in ED Current Medications Medications Dose Ordered Sig/Ashwin Route Start Time Stop Time Status Last Admin Dose Admin Lactated Ringer's 1,000 ml @ 0 mls/hr Q0M ONCE IV 06/13/18 19:13 06/13/18 19:15 DC 06/13/18 19:29 0 MLS/HR Vital Signs/I&O 06/13/18 19:10 Temp 97.2 Pulse 78 Resp 18 B/P (MAP) 188/106 (133) Pulse Ox 99 O2 Delivery Room Air Blood Pressure Mean: 133 Progress Progress Note : Progress Note ON RETURN FROM XRAY DEPT, PT NOW WITH INCREASED PAIN, PACING, HOLDING RIGHT FLANK AND RLQ AND NAUSEATED GIVEN TORADOL AND ZOFRAN--SYMPTOMS RESOLVED AT DISMISSAL Diagnostic Imaging Comments ABDOMEN XRAYS--CALCIFICATION IN RIGHT PELVIS, OTHERWISE NO ACUTE PROCESS CT ABDOMEN/PELVIS--3 MM DISTAL URETERAL STONE WITH MILD RIGHT HYDROURETER/ HYDRONEPHROSIS, STABLE GRANULOMA IN RLL PER RADIOLOGIST REPORTS @ 1959 Reviewed: Reviewed by Me Departure Impression Primary Impression: Right distal ureteral calculus Disposition: 01 HOME, SELF-CARE Condition: Improved Departure-Patient Inst. Referrals: [place] PHELAN DO (PCP) Primary Care Physician JENA SMITH (Family) Primary Care Physician SMILEY ABDULLAHI MD Patient Instructions: Kidney Stones (DC) Add. Discharge Instructions: STRAIN ALL URINE--RETURN ANY STONES TO DR. ABDULLAHI'S OFFICE LOTS OF CLEAR LIQUIDS--DRINK ENOUGH SO YOU ARE URINATING EVERY 2-3 HOURS WHILE AWAKE FOLLOW UP WITH DR. ABDULLAHI THIS WEEK FOR FURTHER CARE RETURN TO ER IF WORSE All discharge instructions reviewed with patient and/or family. Voiced understanding. Scripts Tamsulosin HCl (Flomax) 0.4 Mg Cap 0.4 MG PO DAILY, #10 CAP Prov: ARIC PRINGLE DO 06/13/18 Ondansetron (Zofran Odt) 4 Mg Tab.rapdis 4 MG PO Q4H for Nausea/Vomiting, #10 TAB Prov: ARIC PRINGLE DO 06/13/18 Nitrofurantoin Monohyd/M-Cryst (Macrobid 100 mg Capsule) 100 Mg Capsule 100 MG PO BID, #20 CAP Prov: ARIC PRINGLE DO 06/13/18 Hydrocodone Bit/Acetaminophen (LORTAB 7.5 MG TABLET) 1 Ea Tablet 1-2 EACH PO Q4H for Pain, #20 TAB Prov: ARIC PRNIGLE DO 06/13/18 ARIC PRINGLE DO Jun 13, 2018 19:28
[2018-06-13 19:31] LABS: RBC,URINE 50-100 /HPF
[2018-06-13 19:37] LABS: BASOPHILS % (AUTO) 0 % (0-10); EOSINOPHILS # (AUTO) 0.2 10^3/uL (0.0-0.3); EOSINOPHILS % (AUTO) 2 % (0-10); HEMATOCRIT 41 % (40-54); HEMOGLOBIN 14.3 G/DL (13.3-17.7); LYMPHOCYTES # (AUTO) 1.9 X 10^3 (1.0-4.0); LYMPHOCYTES % (AUTO) 22 % (12-44); MEAN CORPUSCULAR HEMOGLOBIN 29 PG (25-34); MEAN CORPUSCULAR HGB CONC 35 G/DL (32-36); MEAN CORPUSCULAR VOLUME 84 FL (80-99); MEAN PLATELET VOLUME 9.1 FL (7.4-10.4); MONOCYTES # (AUTO) 0.6 X 10^3 (0.0-1.0); MONOCYTES % (AUTO) 7 % (0-12); NEUTROPHILS # (AUTO) 5.9 X 10^3 (1.8-7.8); NEUTROPHILS % (AUTO) 68 % (42-75); PLATELET COUNT 272 10^3/uL (130-400); RED BLOOD COUNT 4.88 10^6/uL (4.35-5.85); RED CELL DISTRIBUTION WIDTH 12.8 % (10.0-14.5); WHITE BLOOD COUNT 8.6 10^3/uL (4.3-11.0)
--- NOTE | 2018-06-13 19:55 | Diagnostic Imaging Report ---
PROCEDURE: CT urinary tract, rule out kidney stone. TECHNIQUE: Multiple contiguous axial images were obtained through the abdomen and pelvis without the use of intravenous contrast. INDICATION: Right flank pain. COMPARISON: There are no prior CT abdomen/pelvis exams available for comparison. FINDINGS: Image 114 of 168, through the midpelvis, reveals that there is a small, 3 mm, calculus within the distal right ureter. The ureter proximal to the calculus is dilated as is the right renal pelvis and most likely the aforementioned calculus is producing partial obstruction of the right collecting system. There are also minute nonobstructive calculi within both kidneys. There is no evidence for obstruction of the left collecting system. The urinary bladder is grossly unremarkable No other acute abnormality of the abdomen or pelvis is noted. The appendix was visualized and is not abnormally thickened. There is no pelvic mass or free fluid collection noted. The prostate gland is not enlarged. The liver, spleen, pancreas, adrenals, gallbladder, kidneys, aorta and inferior vena cava show no sign of an acute abnormality. The stomach is partially filled with fluid and consequently difficult to assess. The lung bases are clear, aside from a 1.8 cm calcified granuloma in the posterior aspect of the right lower lobe. This finding is no different than on the prior CT chest exam of 11/21/2014. The calcification anterior to the distal esophagus, seen on the previous CT chest exam, is also again evident. The bone window show no sign of a fracture or of a destructive lesion. IMPRESSION: 1. There is partial obstruction of the right collecting system due to a 3 mm calculus in the distal right ureter. Minute nonobstructive calculi are also present within both kidneys. 2. There is no acute abnormality of the abdomen or pelvis noted otherwise. Dictated by: Dictated on workstation # [id number]
--- NOTE | 2018-06-13 19:56 | Diagnostic Imaging Report ---
INDICATION: Right flank pain Supine and upright views of the abdomen are obtained with single view of the chest. Comparison is made to chest radiograph of 03/04/2016. Overall heart size and pulmonary vascularity are within normal limits. There is dense calcification within the right hilar lymph nodes as well as within the right lower lobe. Calcifications are also present in the spleen and are likely the result of previous granulomatous exposure. Bowel gas pattern is unremarkable with mild gaseous distention of small bowel loops in the left upper quadrant. There is an approximately 0.3 cm calcification projected over the second segment of the sacrum on the right which could represent ureteric stone. 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 A 0.3 cm calculus projecting over the right sacrum may represent ureteric stone and clinical correlation is recommended. Dictated by: Dictated on workstation # [id number]
[2018-06-13 19:59] LABS: ALANINE AMINOTRANSFERASE 31 U/L (0-55); ALBUMIN 5.2 GM/DL (3.2-4.5); ALKALINE PHOSPHATASE 50 U/L (40-136); AMYLASE 76 U/L (25-125); BILIRUBIN,TOTAL 0.5 MG/DL (0.1-1.0); BUN/CREATININE RATIO 13; CALCIUM 10.2 MG/DL (8.5-10.1); CARBON DIOXIDE 24 MMOL/L (21-32); CHLORIDE 103 MMOL/L (98-107); CREATININE SERUM 1.29 MG/DL (0.60-1.30); GFR ESTIMATED > 60; GLUCOSE 111 MG/DL (70-105); LIPASE 16 U/L (8-78); POTASSIUM 3.6 MMOL/L (3.6-5.0); SODIUM 138 MMOL/L (135-145); TOTAL PROTEIN 7.5 GM/DL (6.4-8.2)
[2018-06-13] MEDS ORDERED: ONDANSETRON 4 MG/2 ML (SDV) Z0FRAN IVP ONE (20:00)
[2018-06-13] MEDS ORDERED: KETOROLAC 30 MG/ML VIAL IVP ONE (20:00)
[2018-06-13] MEDS ORDERED: HYDR-34 PO (20:07)
[2018-06-13] MEDS ORDERED: ONDANSETRON 4 MG/2 ML (SDV) Z0FRAN ONE (20:14)
[2018-06-13] MEDS ORDERED: KETOROLAC 30 MG/ML VIAL ONE (20:14)
[2018-06-13] MEDS ORDERED: NITR-65 PO (20:29)
[2018-06-13] MEDS ORDERED: TAMS0.4C98 PO (20:29)
[2018-06-13] MEDS ORDERED: ONDA4TAB8 PO (20:29)
[2018-06-13] MEDS ORDERED: ALFUZOSIN HCL 10 MG TAB (UROXATRAL) PO SCH (20:30)
[2018-06-13] MEDS ORDERED: ALFUZOSIN HCL 10 MG TAB (UROXATRAL) PO ONE (20:31)
[2018-06-13 21:03] VITALS: BP 171/117
== END 2018-06-13 21:04 | disposition home or self-care (01) ==
LOC: EDUNIT# 19:06 → ER 19:07
DX: N20.1 Calculus of ureter (principal); E78.00 Pure hypercholesterolemia, unspecified; I10 Essential (primary) hypertension; F41.9 Anxiety disorder, unspecified; F32.9 Major depressive disorder, single episode, unspecified; F15.10 Other stimulant abuse, uncomplicated; F14.10 Cocaine abuse, uncomplicated; Z79.82 Long term (current) use of aspirin; Z87.891 Personal history of nicotine dependence
CPT/HCPCS: 36415; 74022; 74176; 80053; 81000; 82150; 83690; 85025

== ENCOUNTER → 2018-11-23 | Outpatient (CLI) | payer OTHER ==
[~2018-11-23] MED LIST changes: +GEMF600T8; +HYDR-34 PO; +NITR-65 PO; +ONDA4TAB8 PO; +TAMS0.4C98 PO
--- NOTE | 2018-11-23 15:45 | Diagnostic Imaging Report ---
PROCEDURE: US DOPPLER ABD/COMPLETE TECHNIQUE: Multiple real-time grayscale images were obtained over the kidneys in various projections. Duplex evaluation of renal arteries was also attempted. INDICATION: Hypertension and proteinuria. FINDINGS: Right kidney measures 12.0 x 5.5 x 5.7 cm and the left kidney measures 12.2 x 5.6 x 7.0 cm. The cortical thickness and echogenicity is normal. No calculi or hydronephrosis is seen. There is a probable 16 mm cyst in the upper pole of the right kidney. Doppler evaluation of the right renal artery does show some velocity elevation in the mid aspect reaching 203 cm/s. There is some tortuosity of the right renal artery. The renal artery to aorta ratio is 2.9. On the left, Doppler measurements appear to be within normal limits. The duplex waveforms are unremarkable. Bladder is unremarkable. IMPRESSION: 1. Right renal cyst. 2. There is some velocity elevation in the mid right renal artery, however this could be in part owing to vessel tortuosity. CT angiography would be useful for further evaluation, if clinically indicated. Dictated by: Dictated on workstation # [id number]
== END ==
LOC: RAD 08:14
PROVIDERS: ATTEND Nurse Practitioner Family
DX: N28.1 Cyst of kidney, acquired (principal); I10 Essential (primary) hypertension; R80.9 Proteinuria, unspecified
CPT/HCPCS: 93975

== ENCOUNTER → 2018-12-21 | Outpatient (CLI) | payer OTHER ==
[~2018-12-21] MED LIST changes: +RECEIVED CONTRAST (Hold Metformin) IV SCH
[2018-12-21] MEDS: NS 100 ML (IVPB) BAG IV ONE (12:07)
[2018-12-21] MEDS: IOHEXOL 350 MG/ML 100 ML (OMNIPAQUE 350) VIAL IV ONE (12:07)
[2018-12-21] MEDS: CATHETER FLUSH 10 ML SYR IV PRN (12:07)
--- NOTE | 2018-12-21 12:30 | Diagnostic Imaging Report ---
INDICATION: Elevated blood pressure and microhematuria. TECHNIQUE: Axial imaging through the abdomen was performed after the administration of intravenous contrast utilizing CT angiography protocol. Multiplanar, 3-D and MIP reformations were also performed. FINDINGS: Lung bases demonstrate a calcified nodule in the right lower lobe consistent with a granuloma. No discrete liver mass is detected. The gallbladder is unremarkable. No biliary duct dilatation is seen. The pancreas is unremarkable. Numerous calcified granulomas in the spleen are seen. No adrenal mass is identified. Small and large bowel loops are normal in caliber. There is no ascites. No central retroperitoneal or mesenteric lymphadenopathy is detected. The kidneys are unremarkable apart from a low-density lesion in the upper pole measuring approximately 14 mm suggestive of a cyst. There are single renal arteries bilaterally. The renal arteries appear to be widely patent. No stenosis is identified. Celiac and SMA appear widely patent. The DWIGHT is widely patent. Visualized common iliac arteries are patent. IMPRESSION: Essentially unremarkable CT angiogram of the abdomen. There are no findings to suggest renal artery stenosis. Dictated by: Dictated on workstation # [id number]
== END ==
LOC: RAD 11:47
PROVIDERS: ATTEND Nurse Practitioner Family
DX: I10 Essential (primary) hypertension (principal); R31.9 Hematuria, unspecified
CPT/HCPCS: 74175

== ENCOUNTER → 2018-12-28 | Outpatient (CLI) | payer OTHER ==
[~2018-12-28] VITALS: Ht 180.3 cm; Wt 115.7 kg
[~2018-12-28] MED LIST changes: +CATHETER FLUSH 10 ML SYR IV PRN; -RECEIVED CONTRAST (Hold Metformin) IV SCH; +REGADENOSON 0.4 MG/5 ML SYR (LEXISCAN) IV ONE
[2018-12-28 10:09] VITALS: BP 183/112
[2018-12-28 10:12] VITALS: BP 198/126
--- NOTE | 2019-01-01 08:53 | STRESS TEST ---
DATE OF SERVICE: 12/28/2018 RESTING AND POST REGADENOSON TECHNETIUM-99M TETROFOSMIN SPECT CT IMAGING ORDERING PHYSICIAN: Brianna Dowling APRN PRIMARY PHYSICIAN: Dr. Germain. OTHER PHYSICIAN: Vandana Santos APRN CLINICAL DIAGNOSES: Chest pain, palpitations. Baseline images were carried out after injection of 10.55 mCi technetium-99m Tetrofosmin. This was followed by 0.4 mg regadenoson and 33 mCi of technetium-99m Tetrofosmin for stress imaging. The electrocardiogram showed sinus rhythm at baseline. It did not change significantly with the regadenoson infusion. The patient tolerated the procedure well. Review of images at rest and following stress does not indicate any significant perfusion defects consistent with significant myocardial ischemia or infarction. Gated images show normal global left ventricular systolic function with normal regional wall motion. Left ventricular ejection fraction is calculated to be 55%. Left ventricular end diastolic volume is 123 mL. TID is absent (0.96). CONCLUSIONS: 1. No evidence of significant myocardial ischemia or infarction on this study. 2. Mild to moderate cardiomegaly is suggested on this study. 3. Normal global left ventricular systolic function with an ejection fraction of 55%. 4. Normal regional wall motion. Job ID: [id number] DocumentID: [id number] Dictated Date: 01/01/2019 08:32:52 Deputy Jailer Date: 01/01/2019 08:52:21 Dictated By: JEANE VALDEZ MD, MA, FACP, FACC,
== END ==
LOC: CARD 08:15
PROVIDERS: ATTEND Nurse Practitioner Family
DX: R07.9 Chest pain, unspecified (principal); R55 Syncope and collapse; R00.2 Palpitations; I10 Essential (primary) hypertension
CPT/HCPCS: 78452; 93017; 93225; 93226; 93306

== ENCOUNTER 2019-03-29 09:41 | Outpatient (RCR) | payer OTHER ==
[~2019-03-29 09:41] MED LIST changes: -CATHETER FLUSH 10 ML SYR IV PRN; -REGADENOSON 0.4 MG/5 ML SYR (LEXISCAN) IV ONE
== END 2019-06-27 | disposition home or self-care (01) ==
LOC: CARD 09:41
PROVIDERS: ATTEND Nurse Practitioner Family
DX: R00.2 Palpitations (principal); I10 Essential (primary) hypertension
CPT/HCPCS: 93270

== ENCOUNTER → 2021-02-01 | Outpatient (CLI) | payer OTHER ==
[~2021-02-01] MED LIST changes: +GADOBUTROL 15 MMOL/15 ML (GADAVIST) VIAL IV ONE; -GEMF600T8; +GEMF600T88; +SERT-412 PO; -SERT25TA5 PO; -TAMS0.4C98 PO; +TMSL.4C PO
--- NOTE | 2021-02-01 16:21 | Diagnostic Imaging Report ---
PROCEDURE: MR imaging of the brain with and without contrast. TECHNIQUE: Multiplanar, multisequence MR imaging of the brain was performed with and without contrast. INDICATION: Recurrent headache. COMPARISON: None. FINDINGS: No abnormal intracranial signal or enhancement. Benign developmental venous anomaly in the left frontal lobe. No restricted water diffusion. No hemosiderin deposition or evidence of intracranial hemorrhage. Normal morphology including the major midline structures, sella, posterior fossa and cerebellar pontine angle. No hydrocephalus or extra-axial fluid collections. Normal intracranial flow voids. The orbits are negative. Paranasal sinuses and mastoids are unremarkable. Normal bone marrow signal. IMPRESSION: No acute intracranial MRI findings. No findings to explain headaches. Incidental benign developmental venous anomaly in the left frontal lobe. Dictated by: Dictated on workstation # [id number]
== END ==
LOC: RAD 15:30
PROVIDERS: ATTEND Nurse Practitioner Family
DX: R51.9 Headache, unspecified (principal)
CPT/HCPCS: 70553

== ENCOUNTER 2022-01-15 11:53 | Emergency (ER) | payer OTHER ==
[~2022-01-15 11:53] MED LIST changes: -GADOBUTROL 15 MMOL/15 ML (GADAVIST) VIAL IV ONE
--- NOTE | 2022-01-15 13:00 | ED Cardiac General ---
History of Present Illness General Chief Complaint: Cardiac/General Problems Stated Complaint: SOB,DIFFICULTY SLEEPING,PALPITATIONS Nursing Triage Note: PT AMB TO RM 5 PT STATES HAS NOT SLEPT FOR A FEW WELL FOR A FEW DAYS D/T PALPATIONS, PT DENIES C/P, STATES HAS DISCOMFORT 5/10. PT STATES HAS FAMILY HX OF HEART DISEASE. PT STATES USE TO TAKE KLONIPIN FOR PTSD BUT PROVIDER CHANGED HIS MEDS TO PROZAC WHICH IS NOT WORKING. HAS ALSO ADJUSTED HIS MEDS STATES PULSE WAS SOMETIMES GETTING LOW. PT STATES HAD COVID ABOUT 2 MONTHS AGO AND HAS NOT QUITE FELT THE SAME Source: patient, family () Exam Limitations: no limitations History of Present Illness Date Seen by Provider: Jan 15, 2022 Time Seen by Provider: 12:40 Initial Comments Patient is a 41yo male with a history of anxiety (currently off medications 3y) as well as hypertension. presents with 2 week history of insomnia (tried a little benadryl last night - didnt help), also left anterior chest pain into the left shoulder, heart "fluttering" especially at night. Feelings of epigastric discomfort/ heartburn at night. N/T to left arm especially when he's working and moving his left arm. He works in construction. Last saw Primary care provider ([facility]) lat week - they started him on 20mg prolosec. He took it for a couple of nights, didnt help so he stopped it. No F/C, cough, n/v (chronic diarrhea). gave him one of her klonopin a few days ago - he slept well. No ongoing care for mental health issues. Stress test 2018. + familly history of CAD in sister and father. Non smoker. All other ROS reviewed and neg except as stated. Timing/Duration: other (2 weeks) Severity: moderate Location: shoulder (left) Prior CP/Workup: stress test NTG SL ORGAN TUNER: No ASA po ORGAN TUNER: No Associated Systoms: Chest Pain (left anterior chest wall), Malaise, Other (insomnia) Allergies and Home Medications Allergies Coded Allergies: No Known Drug Allergies (Unverified , 11/10/14) Patient Home Medication List Home Medication List Reviewed: Yes Amlodipine Besylate (Amlodipine Besylate) 10 Mg Tablet, 10 MG PO DAILY Prescribed by: BRET ANDRADE on 11/11/14 1104 Aspirin (Aspir 81) 81 Mg Tablet.dr, 81 MG PO DAILY Prescribed by: BRET ANDRADE on 11/11/14 110 Gemfibrozil (Gemfibrozil) 600 Mg Tablet, (Reported) Entered as Reported by: TEE GROVES on 06/13/181917 Hydrochlorothiazide (Hydrochlorothiazide) 25 Mg Tablet, 25 MG PO, (Reported) Entered as Reported by: PATY CARBAJAL on 03/04/16 1530 Hydrocodone Bit/Acetaminophen (Lortab 7.5 Mg Tablet) 1 Ea Tablet, 1-2 EACH PO Q4H Prescribed by: ARIC PRINGLE on 06/13/182006 Metoprolol Succinate (Metoprolol Succinate) 50 Mg Tab.sr.24h, 50 MG PO HS Prescribed by: BRET ANDRADE on 11/11/141103 Nitrofurantoin Monohyd/M-Cryst (Macrobid 100 mg Capsule) 100 Mg Capsule, 100 MG PO BID Prescribed by: ARIC PRINGLE on 06/13/182028 Ondansetron (Zofran Odt) 4 Mg Tab.rapdis, 4 MG PO Q4H Prescribed by: ARIC PRINGLE on 06/13/182028 Tamsulosin HCl (Flomax) 0.4 Mg Cap, 0.4 MG PO DAILY Prescribed by: ARIC PRINGLE on 06/13/182028 Valsartan (Diovan) 160 Mg Tablet, 160 MG PO DAILY, (Reported) Entered as Reported by: PATY CARBAJAL on 03/04/16 1523 Review of Systems Review of Systems Constitutional: malaise (fatigue) EENTM: No Symptoms Reported Respiratory: SOA at Rest Cardiovascular: Chest Pain (left chest wall discomfort), Palpitations Gastrointestinal: No Symptoms Reported Genitourinary: No Symptoms Reported Musculoskeletal: joint pain (left shoulder) Skin: no symptoms reported Psychiatric/Neurological: Anxiety All Other Systems Reviewed Negative Unless Noted: Yes Past Eumebph-Qxmgjs-Fymsui Hx Patient Social History Tobacco Use?: No Substance use?: No Alcohol Use?: Yes Alcohol Frequency: Once in a while Immunizations Up To Date Tetanus Booster (TDap): Unknown Seasonal Allergies Seasonal Allergies: No Past Medical History Surgery/Hospitalization HX: HTN,PTSD Surgeries: No Respiratory: Yes ("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" RLL LUNG CALCIFIED NODULE-STABLE OF 06/13/18) Cardiac: Yes High Cholesterol, Hypertension Neurological: Yes Headaches /Migraines Reproductive Disorders: No Genitourinary: No Gastrointestinal: No Musculoskeletal: Yes Chronic Back Pain Endocrine: No HEENT: No Hearing Impairment: Denies Cancer: No Psychosocial: Yes Anxiety, Depression Integumentary: No Blood Disorders: No Adverse Reaction/Blood Tranf: No Family Medical History Diabetes mellitus 19 FATHER, , Age:58 G8 SISTER, , Age:42 G8 BROTHER FHx: mental illness G8 BROTHER Myocardial infarction 19 FATHER, , Age:58 G8 SISTER, , Age:42 Physical Exam Vital Signs Vital Signs - First Documented 01/15/22 12:00 Temp 36.1 Pulse 68 Resp 14 B/P (MAP) 194/118 (143) Pulse Ox 98 Capillary Refill : Less Than 3 Seconds Height, Weight, BMI Height: 5'11.00" Weight: 255lbs. 0.0oz. 115.824121pn; 35.6 BMI Method:Stated General Appearance: No Apparent Distress, WD/WN, Other (resting comfortably on the bed HR in the 60's) HEENT: PERRL/EOMI, Normal ENT Inspection, Moist Mucous Membranes Neck: Normal Inspection, Non Tender, Supple Respiratory: Lungs Clear, Normal Breath Sounds, No Accessory Muscle Use, No Respiratory Distress Cardiovascular: Regular Rate, Rhythm (60's), Normal Peripheral Pulses (left rad pulse intact 1-2+ all positions) Gastrointestinal: Soft Extremity: Normal Inspection, Normal Range of Motion, Non Tender, No Calf Tenderness Neurologic/Psychiatric: Alert, Oriented x3, No Motor/Sensory Deficits, Normal Mood/Affect, scalper operator II-XII Norm as Tested Skin: Normal Color, Warm/Dry Progress/Results/Core Measures Results/Orders Lab Results Laboratory Tests Test 01/15/22 12:10 Range/Units White Blood Count 8.4 4.3-11.0 10^3/uL Red Blood Count 5.19 4.30-5.52 10^6/uL Hemoglobin 15.3 13.3-17.7 g/dL Hematocrit 45 40-54 % Mean Corpuscular Volume 86 80-99 fL Mean Corpuscular Hemoglobin 30 25-34 pg Mean Corpuscular Hemoglobin Concent 34 32-36 g/dL Red Cell Distribution Width 12.3 10.0-14.5 % Platelet Count 232 130-400 10^3/uL Mean Platelet Volume 9.5 9.0-12.2 fL Immature Granulocyte % (Auto) 0 % Neutrophils (%) (Auto) 72 42-75 % Lymphocytes (%) (Auto) 20 12-44 % Monocytes (%) (Auto) 5 0-12 % Eosinophils (%) (Auto) 2 0-10 % Basophils (%) (Auto) 1 0-10 % Neutrophils # (Auto) 6.1 1.8-7.8 10^3/uL Lymphocytes # (Auto) 1.7 1.0-4.0 10^3/uL Monocytes # (Auto) 0.4 0.0-1.0 10^3/uL Eosinophils # (Auto) 0.2 0.0-0.3 10^3/uL Basophils # (Auto) 0.1 0.0-0.1 10^3/uL Immature Granulocyte # (Auto) 0.0 0.0-0.1 10^3/uL Sodium Level 138 135-145 MMOL/L Potassium Level 4.0 3.6-5.0 MMOL/L Chloride Level 104 98-107 MMOL/L Carbon Dioxide Level 20 L 21-32 MMOL/L Anion Gap 14 5-14 MMOL/L Blood Urea Nitrogen 11 7-18 MG/DL Creatinine 1.05 0.60-1.30 MG/DL Estimat Glomerular Filtration Rate 90 BUN/Creatinine Ratio 10 Glucose Level 106 H 70-105 MG/DL Calcium Level 9.8 8.5-10.1 MG/DL Corrected Calcium 8.5-10.1 MG/DL Total Bilirubin 0.9 0.1-1.0 MG/DL Aspartate Amino Transf (AST/SGOT) 19 5-34 U/L Alanine Aminotransferase (ALT/SGPT) 17 0-55 U/L Alkaline Phosphatase 57 40-136 U/L Total Protein 6.6 6.4-8.2 GM/DL Albumin 4.6 H 3.2-4.5 GM/DL Thyroid Stimulating Hormone (TSH) 0.83 0.35-4.94 UIU/ML My Orders Orders - ANGELIQUE DALEY MD Ed Iv/Invasive Line Start (01/15/22 12:51) Thyroid Stimulating Hormone (01/15/22 12:51) Cbc With Automated Diff (01/15/22 12:51) Comprehensive Metabolic Panel (01/15/22 12:51) Ekg Tracing (01/15/22 12:51) Chest 1 View, Ap/Pa Only (01/15/22 12:51) Vital Signs/I&O 01/15/22 12:00 Temp 36.1 Pulse 68 Resp 14 B/P (MAP) 194/118 (143) Pulse Ox 98 Blood Pressure Mean: 143 Progress Progress Note #1: Time: 13:06 Progress Note Patient's has his BP meds in a sandwich baggy at the bedside. I advised him to go ahead and take these. Benazepril and Nifediipine. current BP diastolic is 113. Progress Note #2: Time: 13:56 Progress Note Patient labs have been evaluated, all fall within normal limits. TSH is also normal. EKG shows no ST segment elevation or depression or ectopy. He does have a Q-wave in lead III. Otherwise normal sinus at 59 bpm. Chest x-ray is also unremarkable. He is quite hypertensive, was given his morning blood pressure medications. Diastolic down to 108 at the time of discharge. He is reassured and advised to follow-up with [facility]. He is very worried about his loss of sense of smell related to his Covid infection from a couple of months ago. He was never tested but when he lost his taste and smell he felt like he had COVID. He is quite anxious about having a "blockage". No findings concerning for acute coronary syndrome at this visit. Strongly advised to follow-up with [facility]. Advised to take some thlk-hrg-jzubhau medications delineated on his discharge instructions for insomnia. He verbalized understanding, all questions are sought and answered. Patient is stable for discharge. Initial ECG Impression Date: Jan 15, 2022 Initial ECG Impression Time: 13:08 Initial ECG Rate: 59 Initial ECG Rhythm: Normal Sinus Initial ECG Intervals OH 169 QRS 100 QTc 425 No ectopy, no ST elevations or depression; Q wave inferiorly Diagnostic Imaging Diagonstic Imaging: Xray Plain Films/CT/US/NM/MRI: chest Comments [facility] [place], [place] NAME: KINANA NAVAS MED REC#: [id number] PT STATUS: REG ER : 1980 PHYSICIAN: ANGELIQUE DALEY MD ADMIT DATE: 01/15/22/ER Draft Date of Exam:01/15/22 CHEST 1 VIEW, AP/PA ONLY INDICATION: Short of breath, palpitations EXAMINATION:: Chest 01/15/2022 COMPARISON; 03/04/2016 FINDINGS: The cardiomediastinal silhouette is unremarkable. The pulmonary vasculature is within normal limits. The lungs and pleural spaces are clear. IMPRESSION: No evidence of an acute cardiopulmonary process. Dictated on workstation # [id number] Dict: 01/15/22 1310 Trans: 01/15/22 1311 CVB [id number] Interpreted by: CHIVO ISBELL MD Electronically signed by: Departure Impression Primary Impression: Anxiety about health Additional Impression: Hypertension Qualified Codes: I10 - Essential (primary) hypertension Disposition: 01 HOME, SELF-CARE Condition: Stable Departure-Patient Inst. Decision time for Depature: 13:57 Referrals: [place] PHELAN DO (PCP) Primary Care Physician JENA SMITH (Family) Primary Care Physician Patient Instructions: Controlling Your Blood Pressure Through Lifestyle, Anxiety, Adult ED Add. Discharge Instructions: Continue your daily medications as prescribed. Take a daily baby aspirin. Please follow-up with [facility] for further evaluation and management of your anxiety. You can try nvjq-osn-vnvlqsb melatonin, 10 mg at night. Take this about 30 minutes before bedtime. You could also try as an alternative Unisom. There are multiple other sleep aids available rapj-udv-lqwlckw. Avoid eating after 7 PM at night. Avoid caffeinated beverages after 2pm. Continue the Prilosec nightly. It can take 2-3 weeks for this medication to help with Acid Reflux problems. Return to the emergency department for any new, concerning or emergent complaints. [facility] [phone] [place] [address] Get Immediate Help [email or web address] or Call [phone]-(SAVE) Copy Copies To 1: [place] PHELAN KATHRYN M MD Jan 15, 2022 13:00
--- NOTE | 2022-01-15 13:11 | Diagnostic Imaging Report ---
INDICATION: Short of breath, palpitations EXAMINATION:: Chest 01/15/2022 COMPARISON; 03/04/2016 FINDINGS: The cardiomediastinal silhouette is unremarkable. The pulmonary vasculature is within normal limits. The lungs and pleural spaces are clear. IMPRESSION: No evidence of an acute cardiopulmonary process. Dictated by: Dictated on workstation # [id number]
[2022-01-15 13:13] LABS: BASOPHILS # (AUTO) 0.1 10^3/uL (0.0-0.1); BASOPHILS % (AUTO) 1 % (0-10); EOSINOPHILS # (AUTO) 0.2 10^3/uL (0.0-0.3); EOSINOPHILS % (AUTO) 2 % (0-10); HEMATOCRIT 45 % (40-54); HEMOGLOBIN 15.3 g/dL (13.3-17.7); LYMPHOCYTES # (AUTO) 1.7 10^3/uL (1.0-4.0); LYMPHOCYTES % (AUTO) 20 % (12-44); MEAN CORPUSCULAR HEMOGLOBIN 30 pg (25-34); MEAN CORPUSCULAR HGB CONC 34 g/dL (32-36); MEAN CORPUSCULAR VOLUME 86 fL (80-99); MEAN PLATELET VOLUME 9.5 fL (9.0-12.2); MONOCYTES # (AUTO) 0.4 10^3/uL (0.0-1.0); MONOCYTES % (AUTO) 5 % (0-12); NEUTROPHILS # (AUTO) 6.1 10^3/uL (1.8-7.8); NEUTROPHILS % (AUTO) 72 % (42-75); PLATELET COUNT 232 10^3/uL (130-400); WHITE BLOOD COUNT 8.4 10^3/uL (4.3-11.0)
[2022-01-15 13:19] LABS: ALBUMIN 4.6 GM/DL (3.2-4.5); CHLORIDE 104 MMOL/L (98-107); SODIUM 138 MMOL/L (135-145)
[2022-01-15 13:20] LABS: CALCIUM 9.8 MG/DL (8.5-10.1)
[2022-01-15 13:21] LABS: GLUCOSE 106 MG/DL (70-105)
[2022-01-15 13:22] LABS: TOTAL PROTEIN 6.6 GM/DL (6.4-8.2)
[2022-01-15 13:23] LABS: BILIRUBIN,TOTAL 0.9 MG/DL (0.1-1.0); CARBON DIOXIDE 20 MMOL/L (21-32)
[2022-01-15 13:25] LABS: ALKALINE PHOSPHATASE 57 U/L (40-136); CREATININE SERUM 1.05 MG/DL (0.60-1.30); GFR ESTIMATED 90
[2022-01-15 13:26] LABS: BUN/CREATININE RATIO 10
[2022-01-15 13:28] LABS: ALANINE AMINOTRANSFERASE 17 U/L (0-55)
[2022-01-15 14:05] VITALS: BP 164/100
== END 2022-01-15 14:05 | disposition home or self-care (01) ==
LOC: EDUNIT# 11:53 → ER 11:55
DX: I10 Essential (primary) hypertension (principal)
CPT/HCPCS: 36415; 71045; 80053; 84443; 85025; 93005

== ENCOUNTER → 2023-04-26 | Outpatient (CLI) | payer OTHER ==
--- NOTE | 2023-04-26 14:39 | Diagnostic Imaging Report ---
INDICATION: Palpable lump in the left breast. TECHNIQUE: Unilateral left 2D and 3D diagnostic mammography was performed with CAD. COMPARISON: No prior mammograms are available for comparison. FINDINGS: There appears to be fibroglandular tissue in the retroareolar left breast, suggestive of gynecomastia. No discrete mass or malignant-appearing microcalcifications are seen. The axilla is unremarkable. IMPRESSION: No mammographic features suspicious for malignancy are identified. There is some mild fibroglandular tissue in the retroareolar left breast, consistent with gynecomastia. Even so, further evaluation of the retroareolar left breast with ultrasound is recommended and will be performed today. ACR BI-RADS Category 0: Incomplete. (Needs additional imaging evaluation). Result letter will be mailed to the patient. Note: At least 10% of breast cancer is not imaged by mammography. Dictated by: Dictated on workstation # [id number]
--- NOTE | 2023-04-26 15:49 | Diagnostic Imaging Report ---
INDICATION: Left breast lump. COMPARISON: Correlation is made with the diagnostic mammogram from earlier this same day. FINDINGS: Sonographic interrogation of the retroareolar left breast was performed. There is ill-defined hypoechoic tissue in the retroareolar region, consistent with gynecomastia. No discrete mass is identified. This area measures 2.4 x 1.2 x 2.8 cm. The right breast retroareolar region was scanned for comparison purposes and shows no underlying abnormality. IMPRESSION: Features are most suggestive of gynecomastia. ACR BI-RADS Category 2: Benign findings. Dictated by: Dictated on workstation # [id number]
== END ==
LOC: RAD 13:41
DX: N63.20 Unspecified lump in the left breast, unspecified quadrant (principal)
CPT/HCPCS: 76642; 77065; G0279